=== PATIENT | male | born 1960 | race Two or more races ===

== ENCOUNTER 2019-12-01 17:48 | Inpatient (IN) | payer MEDICAID ==
[~2019-12-01] VITALS: Ht 175.3 cm; Wt 93.9 kg
--- NOTE | 2019-12-01 18:17 | NUR ---
DARVIN FROM HOME TO ER BED 5. AAOX4. SOB, TACHYPNEIC. BROUGHT IN FOR WORSENING SOB SINCE TODAY. PER EMS REPORT, PT HAS BEEN NOT FEELING WELL FOR THE PAST SEVERAL DAYS. TODAY PT'S SOB IS WORST. O2 SAT REPORTED @ 80% BY EMS PLACED ON O2 VIA NON REBREATHER SATTING AT 98%. PT IS NOW PLACED ON 02 VIA NC @ 2LPM O2 SAT NOTED @ 99%. MD WAS AT THE BEDSIDE FOR EVAL. ORDERS RECEIVED NOTED AND CARRIED OUT. IV LINE IS ALREADY PRESENT UPON ARRIVAL ON THE R AC 18G, BLOOD DRAWN AND SENT TO LAB. EMT WAS AT THE BEDSIDE FOR EKG. PT IS PLACED ON MONITOR.
[2019-12-01] MEDS ORDERED: ACETAMINOPHEN 325 MG TABLET ONE (18:22)
[2019-12-01] MEDS ORDERED: ACETAMINOPHEN 325 MG TABLET PO ONE (18:30)
[2019-12-01 18:37] LABS: BASOPHILS # (AUTO) 0.1 /CMM (0.0-0.2); EOSINOPHILS % (AUTO) 1.5 % (0.0-6.0); HEMATOCRIT 36 % (39-51); HEMOGLOBIN 11.4 g/dL (13.5-17.5); LYMPHOCYTES # (AUTO) 0.2 /CMM (0.8-4.8); MEAN CORPUSCULAR HGB CONC 32 g/dl (31.0-36.0); MEAN CORPUSCULAR VOLUME 91 fL (80-96); MONOCYTES # (AUTO) 0.6 /CMM (0.1-1.30); MONOCYTES % (AUTO) 7.7 % (2.0-12.0); NEUTROPHILS # (AUTO) 6.3 /CMM (1.8-8.9); NEUTROPHILS % (AUTO) 86.8 % (43.0-81.0); PLATELET COUNT (AUTO) 90 /CMM (150-450); RED BLOOD CELL COUNT(AUTO) 3.97 MIL/uL (4.5-6.0); WHITE BLOOD COUNT (AUTO) 7.3 K/uL (4.3-11.0)
--- NOTE | 2019-12-01 18:42 | NUR ---
URINE SENT TO LAB. RT AT BEDSIDE.
[2019-12-01 18:44] LABS: APPEARANCE,URINE Clear (CLEAR); BILIRUBIN,URINE SMALL (NEGATIVE); BLOOD, URINE Moderate Ery/uL (NEGATIVE); COLOR,URINE Yellow (YELLOW); KETONES,URINE Negative (NEGATIVE); LEUKOCYTE ESTERASE ,URINE Moderate (NEGATIVE); NITRITE, URINE Positive (NEGATIVE); PROTEIN,URINE 100 mg/dl (NEGATIVE); UGLUCOSE Negative (NEGATIVE)
[2019-12-01 18:47] LABS: ABG BASE EXCESS -1.4 mmol/L; ABG OXYGEN SATURATION 96.3 % (92.0-98.5); ABG PCO2 37.2 mmHg (35.0-45.0); ABG PH 7.408 (7.350-7.450); AaDO2 59.7 mmHg; COHb 0.4 % (0.5-1.5); MetHb 0.5 % (0.0-1.5); O2Hb 95.4 % (94.0-97.0); SITE, ABG Right Radial; VENT MODE, BG 2L NC
[2019-12-01 18:49] LABS: CARBON DIOXIDE 24 mmol/L (21-32); CHLORIDE 98 mmol/L (98-107); CREATININE 1.8 mg/dL (0.6-1.3); GLUCOSE 240 mg/dL (74-106); POTASSIUM 4.4 mmol/L (3.5-5.1); SODIUM SERUM 134 mmol/L (136-145); UREA NITROGEN, BLOOD 41 mg/dL (7-18)
[2019-12-01 18:54] LABS: BACTERIA,URINE 3+ /HPF (None Seen); SQUAMOUS EPITHELIAL CELL,UR Few /HPF (None Seen); WBC,URINE 21-50 /HPF (0-3)
[2019-12-01 18:58] LABS: ALANINE AMINOTRANSFERASE 12 U/L (12-78); ALBUMIN 3.4 g/dL (3.4-5.0); ALKALINE PHOSPHATASE 275 U/L (46-116); ASPARTATE AMINOTRANSFERASE 19 U/L (15-37); BILIRUBIN,DIRECT 1.8 mg/dL (0.0-0.2); BILIRUBIN,TOTAL 3.7 mg/dL (0.2-1.0); TOTAL PROTEIN, SERUM 7.9 g/dL (6.4-8.2)
[2019-12-01 19:26] LABS: EOSINOPHILS % (MANUAL) 3 % (0-4); LYMPHOCYTES % (MANUAL) 4 % (16-48); MONOCYTES % (MANUAL) 7 % (0-11.0); NEUTROPHILS % (MANUAL) 86 (42-76)
[2019-12-01] MEDS ORDERED: VANCOMYCIN 1 GM in IV D5W 250 ML IV ONE (19:30)
[2019-12-01] MEDS ORDERED: NS 0.9% IV ONE (19:30)
[2019-12-01] MEDS ORDERED: CEFEPIME 1 GM in IV D5W 50 ML IV ONE (19:30)
--- NOTE | 2019-12-01 19:32 | NUR ---
CALLED THE [facility] PAGED NADJA
[2019-12-01] MEDS ORDERED: VANCOMYCIN 1 GM VIAL ONE (19:57)
[2019-12-01] MEDS ORDERED: CEFEPIME 1 GM VIAL ONE (19:57)
[2019-12-01] MEDS ORDERED: ONDANSETRON HCL/PF 4 MG/2 ML VIAL IVP PRN (20:00)
[2019-12-01] MEDS ORDERED: Z GUARD REMEDY 2 OZ OINT TP PRN (20:00)
[2019-12-01] MEDS ORDERED: HYDROCODONE/APAP 5/325MG TABLET PO PRN (20:00)
[2019-12-01] MEDS ORDERED: MAG HYDROX/AL HYDROX/SIMETH 30 ML UDC PO PRN (20:00)
[2019-12-01] MEDS ORDERED: ACETAMINOPHEN 325 MG TABLET PO PRN (20:00)
[2019-12-01] MEDS ORDERED: MAGNESIUM HYDROXIDE 30 ML UDC PO PRN (20:00)
--- NOTE | 2019-12-01 20:11 | NUR ---
CALLED NURSING SUP FOR BED
--- NOTE | 2019-12-01 21:27 | NUR ---
REPORT GIVEN TO DANA DIAZ FOR JAY
[2019-12-01 21:45] VITALS: BP_SYST 110; BP_SYST 111; BP_DIAS 72; BP_DIAS 73
--- NOTE | 2019-12-01 21:45 | NUR ---
ADVERTISING ACCOUNT REPRESENTATIVEENGRAVER SET UP OPERATOR NOTES PATIENT TRANSFERRED FROM ER IN STABLE CONDITION. A/OX4. PRIMARY LANGUAGE GREENLANDIC; ABLE TO SPEAK LITTLE GERMAN. ABLE TO AMBULATE TO BED. ON 2L NC. C/O SLIGHT SOB UPON EXERTION. NO C/O PAIN AT THIS TIME. TELE MONITOR READING NSR WITH OCCASIONAL BUNDLE BRANCH BLOCK, HEART RATE 79. IV PRESENT ON RIGHT AC, SIZE 18, INTACT & PATENT, HEP LOCKED AT THIS TIME. PACE MAKER PRESENT ON LEFT UPPER CHEST. B/L LOWER LEG EDEMA PRESENT; PITTING +2. PHOTOS TAKEN AND PLACED IN CHART. BELONGINGS REVIEWED WITH PATIENT; HAS $130 IN [place]; OFFERED PATIENT TO KEEP WALLET IN SAFE HOWEVER PATIENT PREFERS TO KEEP IT AT THE BEDSIDE. ADMISSION ORDERS RECEIVED. SAFETY MEASURES IN PLACE AND PATIENT'S NEEDS MET. BED LOCKED, HOB ELEVATED, SIDE RAILS X2, CALL LIGHT WITHIN REACH. WILL CONTINUE TO MONITOR.
[2019-12-01] MEDS ORDERED: AZITHROMYCIN 500 MG VIAL ONE (23:05)
[2019-12-01] MEDS: AZITHROMYCIN 500 MG in IV D5W 250 ML IV SCH (23:19)
--- NOTE | 2019-12-01 23:20 | NUR ---
ASSISTANT REFINERY OPERATOR NOTES SCHEDULED AZITHROMYCIN 500MG IVPB PULLED FROM NIGHT LOCKER BY NURSING MARINE SURVEYOR. MANUAL BARCODE UTILIZED TO SCAN VIA EMAR.
[2019-12-01] MEDS: FUROSEMIDE 40 MG/4 ML VIAL IV SCH (23:44)
[2019-12-02] VITALS (7 sets, daily range): BP systolic 92–113; BP diastolic 62–75
[2019-12-02] MEDS ORDERED: DEXTROSE 50%-WATER 50 ML DISP.SYRIN IV PRN
[2019-12-02] MEDS ORDERED: HYDR-4077 PO (00:01)
[2019-12-02] MEDS ORDERED: CARV6.252 PO (00:01)
[2019-12-02] MEDS ORDERED: ATOR80TA PO (00:01)
[2019-12-02] MEDS ORDERED: FAMO20TA8 PO (00:01)
[2019-12-02] MEDS ORDERED: HYDR-4075 PO (00:01)
[2019-12-02] MEDS ORDERED: GLYB2.5T4 PO (00:01)
[2019-12-02] MEDS ORDERED: ISOS30TA6 PO (00:01)
[2019-12-02] MEDS ORDERED: CARV12.52 PO (00:01)
[2019-12-02] MEDS ORDERED: METO50TA16 PO (00:01)
[2019-12-02] MEDS ORDERED: GLIP5TAB13 PO (00:01)
[2019-12-02] MEDS ORDERED: METO25TA4 PO (00:01)
[2019-12-02] MEDS ORDERED: CEFTRIAXONE 1 G VIAL ONE (00:08)
[2019-12-02] MEDS: CEFTRIAXONE 1 G in IV D5W 50 ML IV SCH ×2 (00:45→23:28)
--- NOTE | 2019-12-02 00:45 | NUR ---
BOTTOM HOOP DRIVER NOTES SCHEDULED CEFTRIAZONE 1G IVPB PULLED FROM PYXIS BY CHARGE NURSE. MANUAL BARCODE UTILIZED TO SCAN VIA EMAR
[2019-12-02] MEDS: BLOOD SUGAR DIAGNOSTIC 1 EACH STRIP VI SCH ×4 (06:34→22:23)
[2019-12-02] MEDS: INSULIN REGULAR, HUMAN 100 UNIT/ML 3 ML VIAL SQ PRN ×3 (06:34→16:50)
--- NOTE | 2019-12-02 07:15 | NUR ---
Tele/RN - Assessment Patient is A/O x 4, no complaints overnight, afebrile, denies chest pain, on oxygen at 2lpm via NC, no c/o shortness of breath, tele shows SR with BBB. Saline lock on the RAC is patent, intact, with no signs of infiltration. Skin is intact, ambulates with cane. Fall precautions maintained. Labs reviewed, noted with platelet 78, no bleeding seen. Will continue with current medical management.
[2019-12-02 07:24] LABS: BASOPHILS % (AUTO) 0.5 % (0.0-2.0); HEMATOCRIT 33 % (39-51); HEMOGLOBIN 10.7 g/dL (13.5-17.5); LYMPHOCYTES # (AUTO) 0.5 /CMM (0.8-4.8); LYMPHOCYTES % (AUTO) 7.2 % (20.0-44.0); MEAN CORPUSCULAR HGB CONC 33 g/dl (31.0-36.0); MEAN CORPUSCULAR VOLUME 90 fL (80-96); MONOCYTES # (AUTO) 0.8 /CMM (0.1-1.30); NEUTROPHILS # (AUTO) 5.9 /CMM (1.8-8.9); NEUTROPHILS % (AUTO) 80.3 % (43.0-81.0); PLATELET COUNT (AUTO) 78 /CMM (150-450); RED BLOOD CELL COUNT(AUTO) 3.66 MIL/uL (4.5-6.0); WHITE BLOOD COUNT (AUTO) 7.4 K/uL (4.3-11.0)
--- NOTE | 2019-12-02 07:25 | NUR ---
CALCULATING MACHINE OPERATOR CLOSING NOTES PATIENT SLEEPING, EASY TO AWAKEN. A/OX4. ON 2L NC; NO S/S OF SOB OR C/O PAIN. TELE MONITOR READING NSR WITH OCCASIONAL BBB, HEART RATE 70. IV PRESENT ON RIGHT AC, SIZE 18, INTACT & PATENT, HEP LOCKED AT THIS TIME. SAFETY MEASURES IN PLACE AND PATIENT'S NEEDS MET. BED LOCKED, HOB ELEVATED, SIDE RAILS X2, CALL LIGHT WITHIN REACH. ENDORSED TO DAY SHIFT RN PLAN OF CARE.
[2019-12-02 07:33] LABS: CALCIUM, SERUM 8.7 mg/dL (8.5-10.1); CREATININE 1.6 mg/dL (0.6-1.3); MAGNESIUM 1.9 mg/dL (1.8-2.4); PHOSPHORUS 4.2 mg/dL (2.5-4.9); POTASSIUM 3.7 mmol/L (3.5-5.1)
[2019-12-02] MEDS: FUROSEMIDE 40 MG/4 ML VIAL IV SCH (08:16)
[2019-12-02] MEDS ORDERED: ISOS30TA9 PO (08:38)
[2019-12-02] MEDS ORDERED: ASPI-1169 PO (08:38)
[2019-12-02] MEDS ORDERED: ENOXAPARIN SODIUM 30 MG/0.3 ML DISP.SYRIN SQ SCH (09:00)
[2019-12-02 10:12] LABS: BAND % (MANUAL) 3 % (0.0-5.0); EOSINOPHILS % (MANUAL) 1 % (0-4); LYMPHOCYTES % (MANUAL) 4 % (16-48); MONOCYTES % (MANUAL) 11 % (0-11.0); NEUTROPHILS % (MANUAL) 81 (42-76)
--- NOTE | 2019-12-02 11:00 | NUR ---
Tele/RN - Notes Patient resting comfortably, denies SOB, diuresing well, BLE swelling improved, continue to elevate on pillows.
[2019-12-02] MEDS ORDERED: METOPROLOL SUCCINATE 25 MG TAB.SR.24H PO SCH (14:30)
[2019-12-02] MEDS ORDERED: CARVEDILOL 12.5 MG TABLET PO SCH (14:30)
[2019-12-02] MEDS ORDERED: hydrALAZINE HCL 10 MG TABLET PO SCH (14:30)
[2019-12-02] MEDS ORDERED: FAMOTIDINE (20 MG) 20 MG TABLET PO PRN (14:30)
[2019-12-02] MEDS: ASPIRIN 81 MG TAB.CHEW PO SCH (15:15)
[2019-12-02] MEDS: hydrALAZINE HCL 10 MG TABLET PO SCH (16:25)
--- NOTE | 2019-12-02 18:16 | NUR ---
Tele/RN - End of shift summary No significant change in condition seen, tele shows v-pacing/BBB, afebrile, comfortable on 2lpm via NC, denies SOB, blood sugar controlled, assisted with self-care activities to minimize exhaustion. Patient updated on plan of care. Will continue with current medical management.
--- NOTE | 2019-12-02 19:00 | NUR ---
TELE/RN OPENING NOTES: RECEIVED PATIENT A/OX4, VERBALLY RESPONSIVE AND ABLE TO MAKE NEEDS KNOWN. COMORAN SPEAKING BUT ABLE TO UNDERSTAND MINIMAL NEPALI. ON 2L NC; NO S/S OF SOB OR C/O PAIN. TELE MONITOR READING V PACING WITH OCCASIONAL BBB, OCCASIONAL PVCS, HEART RATE 90S. IV PRESENT ON RIGHT AC #18G, SL. INTACT & PATENT. SAFETY MEASURES IN PLACE AND PATIENT'S NEEDS MET. BED LOCKED, HOB ELEVATED, SIDE RAILS X2, CALL LIGHT WITHIN REACH. WILL CONTINUE TO MONITOR ACCORDINGLY.
--- NOTE | 2019-12-02 22:00 | NUR ---
TELE/RN NOTES: ACCUCHECK FOR HS 2200 IS 130. NO COVERAGE GIVEN PER SLIDING SCALE. NO S/S OF HYPOGLYCEMIA/ HYPERGLYCEMIA.
[2019-12-02] MEDS: AZITHROMYCIN 500 MG in IV D5W 250 ML IV SCH (22:17)
[2019-12-02] MEDS: *INSULIN REGULAR(HUMULIN R)HUM 100 UNIT/ML VIAL SQ PRN (22:23)
--- NOTE | 2019-12-02 23:30 | NUR ---
TELE/RN NOTES: PT COMPLAINED OF NAUSEA. REQUESTED NAUSEA MEDICATION. ADMINISTERED 4MG ZOFRAN IVP ORDERED Q6 PRN. PT STABLE. VS STABLE. WILL CONTINUE TO MONITOR.
[2019-12-03] VITALS: BP 110/70
[2019-12-03 04:00] VITALS: BP 123/81
[2019-12-03] MEDS: BLOOD SUGAR DIAGNOSTIC 1 EACH STRIP VI SCH ×4 (06:48→22:11)
[2019-12-03] MEDS: INSULIN REGULAR, HUMAN 100 UNIT/ML 3 ML VIAL SQ PRN ×2 (06:48→11:51)
--- NOTE | 2019-12-03 06:48 | NUR ---
TELE/RN NOTES: ACCUCHECK FOR AC 0730 IS 94. NO COVERAGE GIVEN PER SLIDING SCALE. NO S/S OF HYPOGLYCEMIA/ HYPERGLYCEMIA.
--- NOTE | 2019-12-03 07:07 | NUR ---
TELE/RN CLOSING NOTES: PATIENT REMAINS A/OX4, VERBALLY RESPONSIVE AND ABLE TO MAKE NEEDS KNOWN. NO SIGNIFICANT CHANGES IN CONDITION. ON 2L NC; NO S/S OF SOB OR C/O PAIN. TELE MONITOR READING V PACING WITH OCCASIONAL BBB, OCCASIONAL PVCS, HEART RATE 90S. IV PRESENT ON RIGHT AC #18G, SL. INTACT & PATENT. SAFETY MEASURES IN PLACE AND PATIENT'S NEEDS MET. BED LOCKED, HOB ELEVATED, SIDE RAILS X2, CALL LIGHT WITHIN REACH. WILL ENDORSE TO DAY SHIFT FOR JAY.
--- NOTE | 2019-12-03 07:15 | NUR ---
Tele/RN - Assessment Patient is A/O x 4, afebrile, denies chest pain, states breathing better, on oxygen at 2lpm via NC, tele shows v-pacing with BBB, occasional PVCs. Saline lock on the RAC is patent, intact, with no signs of infiltration. Skin is intact, ambulates with cane. Fall precautions maintained. Lab results still pending. Will continue with current medical management.
[2019-12-03 07:48] LABS: BASOPHILS % (AUTO) 0.5 % (0.0-2.0); EOSINOPHILS % (AUTO) 3.8 % (0.0-6.0); HEMATOCRIT 36 % (39-51); HEMOGLOBIN 11.5 g/dL (13.5-17.5); LYMPHOCYTES # (AUTO) 0.6 /CMM (0.8-4.8); LYMPHOCYTES % (AUTO) 9.8 % (20.0-44.0); MEAN CORPUSCULAR HGB CONC 32 g/dl (31.0-36.0); MEAN CORPUSCULAR VOLUME 89 fL (80-96); MONOCYTES # (AUTO) 0.7 /CMM (0.1-1.30); MONOCYTES % (AUTO) 11.7 % (2.0-12.0); NEUTROPHILS # (AUTO) 4.2 /CMM (1.8-8.9); NEUTROPHILS % (AUTO) 74.2 % (43.0-81.0); PLATELET COUNT (AUTO) 87 /CMM (150-450); WHITE BLOOD COUNT (AUTO) 5.7 K/uL (4.3-11.0)
[2019-12-03 08:00] VITALS: BP 115/80
[2019-12-03] MEDS: ASPIRIN 81 MG TAB.CHEW PO SCH (08:01)
[2019-12-03] MEDS: FUROSEMIDE 40 MG/4 ML VIAL IV SCH (08:01)
[2019-12-03] MEDS: hydrALAZINE HCL 10 MG TABLET PO SCH ×3 (08:01→16:04)
[2019-12-03 08:03] LABS: CALCIUM, SERUM 8.8 mg/dL (8.5-10.1); CREATININE 1.7 mg/dL (0.6-1.3); PHOSPHORUS 4.4 mg/dL (2.5-4.9)
[2019-12-03] MEDS: ISOSORBIDE DINITRATE (20MG) 20 MG TABLET PO SCH (08:03)
[2019-12-03] MEDS: ATORVASTATIN 40 MG TABLET PO SCH (08:03)
--- NOTE | 2019-12-03 10:30 | NUR ---
Tele/RN - MD Order Dr. Ross with order to d/c telemetry and transfer to med-surg status with same orders.
[2019-12-03 16:00] VITALS: BP 116/69
--- NOTE | 2019-12-03 18:34 | NUR ---
MS/RN - End of shift summary Patient states feeling better, no acute distress, afebrile, comfortable on 2lpm via NC, denies SOB, blood sugar controlled, assisted with self-care activities to minimize exhaustion. US kidney was done to r/o obstructive uropathy, result showed normal renal. Patient updated on plan of care. Will continue with current medical management.
--- NOTE | 2019-12-03 19:54 | NUR ---
MS/RN OPENING NOTES: RECEIVED PATIENT AWAKE IN BED, RESTING COMFORTABLY. A/OX4, VERBALLY RESPONSIVE AND ABLE TO MAKE NEEDS KNOWN. HUNGARIAN SPEAKING BUT ABLE TO UNDERSTAND MINIMAL KYRGYZ. SATURATING WELL ON 2L NC; NO S/S OF SOB OR C/O PAIN. NOW MEDSURG STATUS. IV PRESENT ON RIGHT AC #18G, SL. INTACT & PATENT. SAFETY MEASURES IN PLACE AND PATIENT'S NEEDS MET. BED LOCKED, HOB ELEVATED, SIDE RAILS X2, CALL LIGHT WITHIN REACH. WILL CONTINUE TO MONITOR ACCORDINGLY.
[2019-12-03 20:00] VITALS: BP 118/76
[2019-12-03 20:17] VITALS: BP 118/76
--- NOTE | 2019-12-03 22:00 | NUR ---
MS/RN NOTES: ACCUCHECK FOR HS 2200 IS 110. NO COVERAGE GIVEN PER SLIDING SCALE. NO S/S OF HYPOGLYCEMIA/ HYPERGLYCEMIA.
[2019-12-03] MEDS: *INSULIN REGULAR(HUMULIN R)HUM 100 UNIT/ML VIAL SQ PRN (22:12)
[2019-12-03] MEDS: AZITHROMYCIN 500 MG in IV D5W 250 ML IV SCH (22:54)
[2019-12-04] MEDS: CEFTRIAXONE 1 G in IV D5W 50 ML IV SCH (00:59)
[2019-12-04 06:38] LABS: BASOPHILS # (AUTO) 0.1 /CMM (0.0-0.2); EOSINOPHILS % (AUTO) 3.7 % (0.0-6.0); HEMATOCRIT 36 % (39-51); HEMOGLOBIN 11.4 g/dL (13.5-17.5); LYMPHOCYTES # (AUTO) 0.5 /CMM (0.8-4.8); LYMPHOCYTES % (AUTO) 8.7 % (20.0-44.0); MEAN CORPUSCULAR HGB CONC 32 g/dl (31.0-36.0); MEAN CORPUSCULAR VOLUME 89 fL (80-96); MONOCYTES # (AUTO) 0.7 /CMM (0.1-1.30); MONOCYTES % (AUTO) 11.5 % (2.0-12.0); NEUTROPHILS # (AUTO) 4.3 /CMM (1.8-8.9); NEUTROPHILS % (AUTO) 75.1 % (43.0-81.0); PLATELET COUNT (AUTO) 99 /CMM (150-450); RED BLOOD CELL COUNT(AUTO) 3.99 MIL/uL (4.5-6.0); WHITE BLOOD COUNT (AUTO) 5.7 K/uL (4.3-11.0)
[2019-12-04 06:57] LABS: CALCIUM, SERUM 8.8 mg/dL (8.5-10.1); CREATININE 1.7 mg/dL (0.6-1.3); MAGNESIUM 2.2 mg/dL (1.8-2.4); PHOSPHORUS 3.9 mg/dL (2.5-4.9); POTASSIUM 3.8 mmol/L (3.5-5.1)
[2019-12-04] MEDS: BLOOD SUGAR DIAGNOSTIC 1 EACH STRIP VI SCH ×2 (07:00→11:43)
[2019-12-04] MEDS: INSULIN REGULAR, HUMAN 100 UNIT/ML 3 ML VIAL SQ PRN ×2 (07:01→11:43)
--- NOTE | 2019-12-04 07:02 | NUR ---
MS/RN CLOSING NOTES: PATIENT REMAINS A/OX4, VERBALLY RESPONSIVE AND ABLE TO MAKE NEEDS KNOWN. NO SIGNIFICANT CHANGES IN CONDITION. ON 2L NC; NO S/S OF SOB OR C/O PAIN. IV PRESENT ON RIGHT AC #18G, SL. INTACT & PATENT. SAFETY MEASURES IN PLACE AND PATIENT'S NEEDS MET. BED LOCKED, HOB ELEVATED, SIDE RAILS X2, CALL LIGHT WITHIN REACH. WILL ENDORSE TO DAY SHIFT FOR JAY.
--- NOTE | 2019-12-04 07:02 | NUR ---
MS/RN NOTES: ACCUCHECK IS 95. NO COVERAGE NEEDED PER SLIDING SCALE. PT STABLE.
--- NOTE | 2019-12-04 07:03 | NUR ---
MS/RN NOTES: ACCUCHECK FOR HS 2200 IS 110. NO COVERAGE GIVEN PER SLIDING SCALE. NO S/S OF HYPOGLYCEMIA/ HYPERGLYCEMIA.
--- NOTE | 2019-12-04 07:48 | NUR ---
MS RN NOTES PATIENT IN BED RESTING NO SOB OR ACUTE DISTRESS NOTED. PATIENT ALERT, ORIENTED X3, WELSH SPEAKING. SAFETY MEASURES IN PLACE WILL CONTINUE TO MONITOR.
[2019-12-04] MEDS ORDERED: CARVEDILOL 6.25 MG TABLET PO SCH (09:00)
[2019-12-04] MEDS: hydrALAZINE HCL 10 MG TABLET PO SCH ×2 (09:00→13:00)
[2019-12-04] MEDS: ASPIRIN 81 MG TAB.CHEW PO SCH (09:16)
[2019-12-04] MEDS: ATORVASTATIN 40 MG TABLET PO SCH (09:16)
[2019-12-04] MEDS: FUROSEMIDE 40 MG/4 ML VIAL IV SCH (09:16)
[2019-12-04] MEDS: ISOSORBIDE DINITRATE (20MG) 20 MG TABLET PO SCH (09:17)
[2019-12-04 13:00] VITALS: BP 110/67
[2019-12-04] MEDS ORDERED: LEVO500T90 PO (13:22)
[2019-12-04] MEDS ORDERED: FURO-144 PO (13:22)
--- NOTE | 2019-12-04 15:25 | NUR ---
MS RN NOTES DISCHARGE TEACHING PROVIDED WITH AUTO CLAIM REPRESENTATIVE. PATIENT VERBALIZED UNDERSTANDING. LO CALLED MEDICATIONS WAITING FOR PARTS EXPEDITER. PATIENT EDUCATED ON MEDICATIONS THAT WERE STOPPED. PATIENT EDUCATED ON NEW MEDICATIONS. PROVIDED PATIENT WITH FREE [facility] INFO WHICH WAS PROVIDED BY CASE MANAGEMENT. PERIPHERAL IV REMOVED WITH MINIMAL BLEEDING. PATIENT REQUESTED TAXI. TAXI CALLED WAITING FOR PARTS EXPEDITER. PATIENTS HOME MEDICATIONS RETURNED TO PATIENT. MD AWARE OF ALL ABNORMAL LABS AND TESTS. PATIENT WAITING FOR TAXI PARTS EXPEDITER.
--- NOTE | 2019-12-04 15:32 | NUR ---
MS RN NOTES PATIENT REFUSES DISCHARGE PICTURES.
--- NOTE | 2019-12-04 16:00 | NUR ---
MS RN NOTES PATIENTS ID BAND REMOVED, PATIENT ESCORTED BY VIDEO SYSTEM REPAIRER TO TAXI IN STABLE CONDITION.
[2019-12-04] MEDS ORDERED: AZITHROMYCIN 250 MG TABLET PO SCH (21:00)
== END 2019-12-04 16:00 | disposition home or self-care (01) | DRG 720 ==
LOC: ER 17:48 → TELE 20:51 → MED 12-03 13:13
PROVIDERS: ADMIT Internal Medicine; ATTEND Student in an Organized Health Care Education/Training Program
DX: A41.9 Sepsis, unspecified organism (principal); E87.1 Hypo-osmolality and hyponatremia; I25.10 Atherosclerotic heart disease of native coronary artery without angina pectoris; J96.01 Acute respiratory failure with hypoxia; N17.0 Acute kidney failure with tubular necrosis; K74.60 Unspecified cirrhosis of liver; N39.0 Urinary tract infection, site not specified; I13.0 Hypertensive heart and chronic kidney disease with heart failure and stage 1 through stage 4 chronic kidney disease, or unspecified chronic kidney disease; I50.23 Acute on chronic systolic (congestive) heart failure; N18.9 Chronic kidney disease, unspecified; E11.22 Type 2 diabetes mellitus with diabetic chronic kidney disease; E78.5 Hyperlipidemia, unspecified; D63.8 Anemia in other chronic diseases classified elsewhere; Z95.0 Presence of cardiac pacemaker; Z79.4 Long term (current) use of insulin; E87.2 Acidosis; I42.9 Cardiomyopathy, unspecified; B96.20 Unspecified Escherichia coli [E. coli] as the cause of diseases classified elsewhere; N13.9 Obstructive and reflux uropathy, unspecified
CPT/HCPCS: 36415; 36600; 71045-TC; 76770-TC; 80048-TC; 80076-TC; 81000-TC; 82803-TC; 82962-TC; 83605-TC; 83735-TC; 84100-TC; 84484-TC; 85025-TC; 85730-TC; 87040-TC; 87081-TC; 87086-TC; 87186-TC; C9803-CS; G0378; J0456; J0692; J0696; J1815; J1940; J2405; J3370; J7030; J7050; J7060

== ENCOUNTER 2020-01-18 04:51 | Inpatient (IN) | payer MEDICAID ==
[~2020-01-18] VITALS: Ht 175.3 cm; Wt 83.9 kg
[~2020-01-18 04:51] MED LIST: ASPI-1169 PO; ATOR80TA PO; CARV6.252 PO; FAMO20TA8 PO; FURO-144 PO; HYDR-4075 PO; ISOS30TA9 PO; LEVO500T90 PO
--- NOTE | 2020-01-18 04:54 | NUR ---
DARVIN 40 FROM HOME FOR C/O WEAKNESS. PT FOUND DIAPHORETIC W/ BS:33 ON SCENE.ORAL GLUCOSE GIVEN CHOCOLATE DIPPER. FSBS ON TRIAGE : 33, -ALOC; PT APPEARS ALERT AND AWAKE, -SOB, NAD NOTED, PENDING ER PROVIDER ARICAL
[2020-01-18] MEDS ORDERED: DEXTROSE 50%-WATER 50 ML DISP.SYRIN ONE (05:01)
[2020-01-18 05:21] LABS: BASOPHILS % (AUTO) 0.5 % (0.0-2.0); EOSINOPHILS % (AUTO) 2.5 % (0.0-6.0); HEMATOCRIT 47 % (39-51); HEMOGLOBIN 15.3 g/dL (13.5-17.5); LYMPHOCYTES # (AUTO) 0.5 /CMM (0.8-4.8); LYMPHOCYTES % (AUTO) 7.7 % (20.0-44.0); MEAN CORPUSCULAR HGB CONC 33 g/dl (31.0-36.0); MEAN CORPUSCULAR VOLUME 89 fL (80-96); MONOCYTES # (AUTO) 0.5 /CMM (0.1-1.30); MONOCYTES % (AUTO) 8.6 % (2.0-12.0); NEUTROPHILS # (AUTO) 4.7 /CMM (1.8-8.9); NEUTROPHILS % (AUTO) 80.7 % (43.0-81.0); PLATELET COUNT (AUTO) 187 /CMM (150-450); RED BLOOD CELL COUNT(AUTO) 5.27 MIL/uL (4.5-6.0); WHITE BLOOD COUNT (AUTO) 5.8 K/uL (4.3-11.0)
--- NOTE | 2020-01-18 05:22 | NUR ---
RPT BS 105
--- NOTE | 2020-01-18 05:24 | NUR ---
COVID SWAB SENT
[2020-01-18] MEDS ORDERED: METO50TA7 PO (05:25)
[2020-01-18] MEDS ORDERED: AMIO200T4 PO (05:25)
[2020-01-18] MEDS ORDERED: METO25TA4 PO (05:25)
[2020-01-18] MEDS ORDERED: PANT40TA49 PO (05:25)
[2020-01-18] MEDS ORDERED: HYDR-4076 PO (05:25)
[2020-01-18] MEDS ORDERED: ATOR80TA PO (05:25)
[2020-01-18] MEDS ORDERED: GLYB2.5T4 PO (05:25)
[2020-01-18] MEDS ORDERED: METF-440 PO (05:25)
[2020-01-18] MEDS ORDERED: FURO-144 PO (05:25)
[2020-01-18] MEDS ORDERED: SPIR50TA5 PO (05:25)
[2020-01-18] MEDS ORDERED: ASPI-1420 PO (05:25)
[2020-01-18] MEDS ORDERED: ISOS30TA6 PO (05:25)
[2020-01-18] MEDS ORDERED: DEXTROSE 50%-WATER 50 ML DISP.SYRIN IVP ONE (05:30)
[2020-01-18 05:37] LABS: CALCIUM, SERUM 10.1 mg/dL (8.5-10.1); CREATININE 1.8 mg/dL (0.6-1.3); POTASSIUM 4.5 mmol/L (3.5-5.1)
--- NOTE | 2020-01-18 05:37 | NUR ---
SPOKE WITH [facility] WILL CALL BACK FOR PANEL WITH
--- NOTE | 2020-01-18 05:44 | NUR ---
dr. tate speaking to dr. poly hope for plan of care.
[2020-01-18] MEDS ORDERED: ACETAMINOPHEN 325 MG TABLET PO PRN (06:00)
[2020-01-18] MEDS ORDERED: ONDANSETRON HCL/PF 4 MG/2 ML VIAL IVP PRN (06:00)
[2020-01-18] MEDS ORDERED: HYDROCODONE/APAP 5/325MG TABLET PO PRN (06:00)
[2020-01-18] MEDS ORDERED: DEXTROSE 50%-WATER 50 ML DISP.SYRIN IV PRN (06:00)
[2020-01-18] MEDS ORDERED: ZOLPIDEM TARTRATE 5 MG TABLET PO PRN (06:00)
--- NOTE | 2020-01-18 06:11 | NUR ---
per lab covid test negative
[2020-01-18 06:12] LABS: ALANINE AMINOTRANSFERASE 43 U/L (12-78); ALBUMIN 4.1 g/dL (3.4-5.0); ALKALINE PHOSPHATASE 296 U/L (46-116); ASPARTATE AMINOTRANSFERASE 19 U/L (15-37); B-TYPE NATRIURETIC PEPTIDE 24434 PG/ML (0-125); BILIRUBIN,DIRECT 1.8 mg/dL (0.0-0.2); BILIRUBIN,TOTAL 2.7 mg/dL (0.2-1.0); MAGNESIUM 2.2 mg/dL (1.8-2.4); TOTAL PROTEIN, SERUM 9.9 g/dL (6.4-8.2)
--- NOTE | 2020-01-18 06:12 | NUR ---
called rn sup for tele bed
--- NOTE | 2020-01-18 06:19 | NUR ---
PER WESTLEY RN SUP PT WILL BE PLACED IN 320-1
--- NOTE | 2020-01-18 06:24 | NUR ---
REPORT GIVEN TO ABIGAIL CORTEZ CHARGE NURSE FOR JAY; PT WILL BE TRANSPORTED TO 3RD FLOOR TELE
--- NOTE | 2020-01-18 07:30 | NUR ---
RN NOTE: PT RECEIVED IN BED, EYES OPEN AND A/OX4. PT ON RA O2 SATURATION 100%. NO RESPIRATORY DISTRESS OR SOB. PT IS AMBULATORY TO THE BATHROOM. PT HAS LAC $18, RH #18, INTACT AND NO SIGNS OF INFECTION OR INFILTRATION. MED RECON COMPLETED, MEDS SENT TO PHARMACY. ALL SAFETY MEASURES IN PLACE. CALL LIGHT WITHIN REACH. WILL CONTINUE TO MONITOR CLOSELY. BED IN LOCKED LOWEST POSITION.
--- NOTE | 2020-01-18 08:51 | NUR ---
RN NOTE: PT BLOOD SUGAR OF 31, D50 GIVEN PER PROTOCOL. MD DEAL AWARE. NO FURTHER ORDERS AT THIS TIME. WILL REASSESS
[2020-01-18] MEDS: BLOOD SUGAR DIAGNOSTIC 1 EACH STRIP IN SCH ×4 (10:01→22:13)
[2020-01-18] MEDS: DOCUSATE SODIUM 100 MG CAPSULE PO SCH ×2 (10:33→19:30)
[2020-01-18] MEDS: ASPIRIN EC 81 MG TABLET.DR PO SCH (10:33)
[2020-01-18] MEDS: PANTOPRAZOLE 40 MG TABLET.DR PO SCH (10:33)
[2020-01-18] MEDS: ISOSORBIDE MONONITRATE (30MG) 30 MG TAB.SR.24H PO SCH (10:33)
--- NOTE | 2020-01-18 11:40 | NUR ---
DANA NOTE: PER LAMONT DEAL RN TO GIVE D10 @ 30 ML/HR. RN TO CONTINUE GLUCOSE CHECKS AND WITHHOLD INSULIN COVERAGE UNLESS BS IN THE 250-300S. Addendum: 01/18/20 at 1950 by BLANCA VERGARA RN RN NOTE: PER LAMONT DEAL RN TO GIVE D10 @ 50 ML/HR. RN TO CONTINUE GLUCOSE CHECKS AND WITHHOLD INSULIN COVERAGE UNLESS BS IN THE 250-300S.
[2020-01-18 12:00] VITALS: BP 115/69
[2020-01-18] MEDS: Sodium Chloride 154 MEQ in IV 10% DEXTROSE 1,000 ML IV PRN (12:29)
[2020-01-18] MEDS: METOPROLOL TARTRATE 25 MG TABLET PO SCH ×2 (13:56→21:00)
[2020-01-18 16:27] VITALS: BP 88/64
--- NOTE | 2020-01-18 19:30 | NUR ---
MEDICAL IMAGING DIRECTOR OPENING NOTES RECEIVED PATIENT IN BED ALERT AND ORIENTED X 4. VERBALLY RESPONSIVE AND ABLE TO FOLLOW DIRECTIONS. BREATHING REGULAR AND UNLABORED ON ROOM AIR. RIGHT HAND LEFT AC BOTH G18 IV LINES INTACT AND PATENT, FLUSHING WELL WITH NO BLEEDING OR S/S OF INFILTRATION NOTED. ON CARDIAC MONITORING WITH NSR AT 70bpm. DENIES SUICIDAL IDEATION OR PAIN/DISCOMFORT AT THIS TIME. BED LOW AND LOCKED ON SEMI FOWLERS POSITION. CALL LIGHT IN REACH. WILL CONTINUE TO MONITOR.
--- NOTE | 2020-01-18 19:50 | NUR ---
RN NOTE: PT IN BED, EYES OPEN, A/OX4. PT ON RA O2 SATURATION 98. NO RESPIRATORY DISTRESS OR SOB. PT AMBULATORY WITH WALKER, SKIN REMAINS INTACT. PT HAS RIGHT HAND #18, LAC #18 RUNNING NACL D10 @50 ML/HR. ENDORSED TO ONCOMING RN TO WITHHOLD FROM GIVING INSULIN UNTIL BS 250-300, PER PATIENT MANAGER TOYIN. PT IN BED LOCKED LOWEST POSITION. CALL LIGHT WITHIN REACH. ALL SAFETY MEASURES IN PLACE. REPORT GIVEN TO ONCOMING RN FOR JAY
[2020-01-18 20:00] VITALS: BP 95/63
[2020-01-18 20:45] VITALS: BP 95/63
--- NOTE | 2020-01-18 22:15 | NUR ---
RESUME SPECIALIST NOTES BS 102mg/dl, NO INSULIN COVERAGE NEEDED. SNACKS PROVIDED ON BEDSIDE. WILL CONTINUE TO MONITOR.
[2020-01-18] MEDS ORDERED: MAGNESIUM HYDROXIDE 30 ML UDC PO PRN (22:30)
[2020-01-19] VITALS (7 sets, daily range): BP systolic 90–104; BP diastolic 63–71
[2020-01-19] MEDS: Sodium Chloride 154 MEQ in IV 10% DEXTROSE 1,000 ML IV PRN (02:35)
[2020-01-19 06:22] LABS: BASOPHILS # (AUTO) 0.1 /CMM (0.0-0.2); BASOPHILS % (AUTO) 1.5 % (0.0-2.0); EOSINOPHILS % (AUTO) 7.3 % (0.0-6.0); HEMATOCRIT 38 % (39-51); HEMOGLOBIN 12.5 g/dL (13.5-17.5); LYMPHOCYTES # (AUTO) 0.5 /CMM (0.8-4.8); MEAN CORPUSCULAR HGB CONC 33 g/dl (31.0-36.0); MEAN CORPUSCULAR VOLUME 88 fL (80-96); MONOCYTES # (AUTO) 0.8 /CMM (0.1-1.30); MONOCYTES % (AUTO) 13.3 % (2.0-12.0); NEUTROPHILS # (AUTO) 4.1 /CMM (1.8-8.9); NEUTROPHILS % (AUTO) 68.9 % (43.0-81.0); PLATELET COUNT (AUTO) 165 /CMM (150-450); RED BLOOD CELL COUNT(AUTO) 4.34 MIL/uL (4.5-6.0); WHITE BLOOD COUNT (AUTO) 5.9 K/uL (4.3-11.0)
[2020-01-19] MEDS: BLOOD SUGAR DIAGNOSTIC 1 EACH STRIP IN SCH ×4 (06:34→21:30)
[2020-01-19] MEDS: INSULIN REGULAR, HUMAN 100 UNIT/ML 3 ML VIAL SQ PRN ×4 (06:35→21:33)
--- NOTE | 2020-01-19 06:35 | NUR ---
ELECTRICAL APPLIANCE MECHANIC NOTES BS 180mg/dl, INSULIN COVERAGE NOT GIVEN PER PAYROLL SUPERVISOR TITUS ONLY GIVE INSULIN WHEN BLOOD SUGAR STABILIZES AND WHEN IT IS 200-300'S LEVEL.
--- NOTE | 2020-01-19 06:50 | NUR ---
BASEBALL INSPECTOR AND REPAIRER CLOSING NOTES PATIENT IN BED ALERT AND ORIENTED X 4. AFEBRILE WITH NO S/S OF DISTRESS OBSERVED. RIGHT HAND LEFT AC BOTH G18 IV LINES PATENT AND FLUSHING WELL. MAINTAINED ON CARDIAC MONITORING WITH NSR AT 72bpm. NO COMPLAINTS OF PAIN/DISCOMFORT REPORTED AT THIS TIME. BED LOW AND LOCKED ON SEMI FOWLERS POSITION. CALL LIGHT IN REACH. WILL ENDORSE TO MORNING SHIFT FOR JAY.
[2020-01-19 06:52] LABS: THYROID STIMULATING HORMONE 10.064 uIU/mL (0.358-3.74)
[2020-01-19 06:53] LABS: BILIRUBIN,TOTAL 1.6 mg/dL (0.2-1.0); CALCIUM, SERUM 9.1 mg/dL (8.5-10.1); CREATININE 1.9 mg/dL (0.6-1.3); MAGNESIUM 2.1 mg/dL (1.8-2.4); PHOSPHORUS 3.4 mg/dL (2.5-4.9); POTASSIUM 5.3 mmol/L (3.5-5.1); TOTAL PROTEIN, SERUM 7.6 g/dL (6.4-8.2)
--- NOTE | 2020-01-19 07:45 | NUR ---
RN NOTE THE PATIENT IS RECEIVED IN BED. PATIENT IS ALERT AND ORIENTED X4. IN ROOM AIR AND DENIES SOB. RESPIRATION REGULAR AND UNLABORED. DENIES PAIN. TELE BOX READING IS SR 84. LAC G 18 PATENT AND SALINE LOCKED. RIGHT HAND G 18 PATENT NS IV FLUID INFUSING PER ORDER. NO S/S INFILTRATION NOTED. BED LOW AND LOCKED. SIDE RAILS UP X2. CALL LIGHT WITHIN REACH. WILL CONTINUE TO MONITOR.
[2020-01-19] MEDS: ISOSORBIDE MONONITRATE (30MG) 30 MG TAB.SR.24H PO SCH (09:00)
[2020-01-19 09:06] LABS: CREATININE, URINE 38.6 MG/DL (30.0-125.0); URINE TOTAL PROTEIN 8.7 mg/dL (0-11.9)
[2020-01-19 09:32] LABS: APPEARANCE,URINE CLEAR (CLEAR); BILIRUBIN,URINE NEGATIVE (NEGATIVE); BLOOD, URINE NEGATIVE Ery/uL (NEGATIVE); COLOR,URINE YELLOW (YELLOW); KETONES,URINE NEGATIVE (NEGATIVE); LEUKOCYTE ESTERASE ,URINE NEGATIVE (NEGATIVE); NITRITE, URINE NEGATIVE (NEGATIVE); PH,URINE 6.5 (5.0-8.0); PROTEIN,URINE NEGATIVE (NEGATIVE); UGLUCOSE NEGATIVE (NEGATIVE)
[2020-01-19 09:33] LABS: BACTERIA,URINE None seen /HPF (None Seen); RBC,URINE 0-2 /HPF (0-2); SQUAMOUS EPITHELIAL CELL,UR None Seen /HPF (None Seen); WBC,URINE 0-2 /HPF (0-3)
[2020-01-19] MEDS: ASPIRIN EC 81 MG TABLET.DR PO SCH (09:33)
[2020-01-19] MEDS: DOCUSATE SODIUM 100 MG CAPSULE PO SCH ×2 (09:34→16:08)
[2020-01-19] MEDS: PANTOPRAZOLE 40 MG TABLET.DR PO SCH (09:34)
[2020-01-19] MEDS: METOPROLOL SUCCINATE 50 MG TAB.SR.24H PO SCH (09:35)
[2020-01-19] MEDS: AMIODARONE HCL 200 MG TABLET PO SCH (09:39)
[2020-01-19] MEDS: HEPARIN SODIUM, PORCINE 5000 UNITS/1 ML VIAL SQ SCH ×2 (09:44→21:07)
[2020-01-19 10:20] LABS: EOSINOPHIL,URINE None Seen
--- NOTE | 2020-01-19 13:07 | NUR ---
RN NOTE DR MARTE IS MADE AWARE OF POTASSIUM LEVEL FO 5.3 AND PER MD NO NEW ORDER REGARDING THE POTASSIUM. HOWEVER, MD ORDERED TO DISCONTINUE SODIUM CHLORIDE 154 MEQ IN IV 10% DEXTROSE. THE ORDER IS READ BACK, VERIFIED. NOTED AND CARRIED OUT.
[2020-01-19] MEDS ORDERED: HYDR-4077 PO (15:32)
[2020-01-19] MEDS ORDERED: FURO-144 PO (15:33)
[2020-01-19] MEDS ORDERED: SPIR100T5 PO (15:33)
[2020-01-19] MEDS ORDERED: INFLUENZA VACCINE 2020-21 0.5 ML DISP.SYRIN IM ONE (16:00)
--- NOTE | 2020-01-19 18:23 | NUR ---
RN NOTE THE PATIENT IS ALERT AND ORIENTED X4. IN ROOM AIR AND DENIES SOB. RESPIRATION REGULAR AND UNLABORED. DENIES PAIN. PATIENT IS IN ROOM AIR AND SATURATION IS AT 96%. THE PATIENT IN NO APPARENT DISTRESS. LAC G 18 PATENT AND SALINE LOCKED. RIGHT HAND G 18 PATENT AND SALINE LOCKED. BED LOW AND LOCKED. SIDE RAILS UP X2. CALL LIGHT WITHIN REACH. WILL ENDORSE TO NIGHT.
--- NOTE | 2020-01-19 19:30 | NUR ---
MS RN OPENING NOTES RECEIVED PATIENT IN BED ALERT AND ORIENTED X 4. VERBALLY RESPONSIVE AND ABLE TO FOLLOW DIRECTIONS. BREATHING REGULAR AND UNLABORED ON ROOM AIR. RIGHT HAND LEFT AC BOTH G18 IV LINES INTACT AND PATENT, FLUSHING WELL WITH NO BLEEDING OR S/S OF INFILTRATION NOTED. DENIES SUICIDAL IDEATION OR PAIN/DISCOMFORT AT THIS TIME. BED LOW AND LOCKED ON SEMI FOWLERS POSITION. CALL LIGHT IN REACH. WILL CONTINUE TO MONITOR.
--- NOTE | 2020-01-19 22:00 | NUR ---
MS RN NOTES BS 252mg/dl, 6UNITS REGULAR INSULIN GIVEN SQ. SNACKS PROVIDED ON BEDSIDE. WILL CONTINUE TO MONITOR.
[2020-01-20] MEDS: BLOOD SUGAR DIAGNOSTIC 1 EACH STRIP IN SCH ×4 (06:30→21:35)
[2020-01-20] MEDS: INSULIN REGULAR, HUMAN 100 UNIT/ML 3 ML VIAL SQ PRN ×4 (06:30→21:35)
[2020-01-20 06:41] LABS: BASOPHILS # (AUTO) 0.1 /CMM (0.0-0.2); BASOPHILS % (AUTO) 1.3 % (0.0-2.0); HEMATOCRIT 40 % (39-51); HEMOGLOBIN 13.1 g/dL (13.5-17.5); LYMPHOCYTES # (AUTO) 0.7 /CMM (0.8-4.8); LYMPHOCYTES % (AUTO) 13.2 % (20.0-44.0); MEAN CORPUSCULAR HGB CONC 33 g/dl (31.0-36.0); MEAN CORPUSCULAR VOLUME 88 fL (80-96); MONOCYTES # (AUTO) 0.8 /CMM (0.1-1.30); MONOCYTES % (AUTO) 13.7 % (2.0-12.0); NEUTROPHILS # (AUTO) 3.6 /CMM (1.8-8.9); NEUTROPHILS % (AUTO) 64.8 % (43.0-81.0); PLATELET COUNT (AUTO) 173 /CMM (150-450); RED BLOOD CELL COUNT(AUTO) 4.53 MIL/uL (4.5-6.0); WHITE BLOOD COUNT (AUTO) 5.5 K/uL (4.3-11.0)
--- NOTE | 2020-01-20 06:50 | NUR ---
MS RN CLOSING NOTES PATIENT IN BED ALERT AND ORIENTED X 4. AFEBRILE WITH NO S/S OF DISTRESS OBSERVED. RIGHT HAND LEFT AC BOTH G18 IV LINES PATENT AND FLUSHING WELL. NO COMPLAINTS OF PAIN/DISCOMFORT REPORTED AT THIS TIME. BED LOW AND LOCKED ON SEMI FOWLERS POSITION. CALL LIGHT IN REACH. WILL ENDORSE TO MORNING SHIFT FOR JAY.
[2020-01-20 07:20] LABS: CALCIUM, SERUM 9.3 mg/dL (8.5-10.1); CREATININE 1.8 mg/dL (0.6-1.3); MAGNESIUM 2.2 mg/dL (1.8-2.4); PHOSPHORUS 3.7 mg/dL (2.5-4.9); POTASSIUM 5.7 mmol/L (3.5-5.1)
--- NOTE | 2020-01-20 07:40 | NUR ---
MS RN OPENING NOTES BEDSIDE ENDORSEMENT DONE. PATIENT IS IN BED, AWAKE AND VERBALLY RESPONSIVE, NOT IN ACUTE DISTRESS. A/O X4, ABLE TO MAKE NEEDS KNOWN. BREATHING EVEN AND UNLABORED, TOLERATING ROOM AIR. IV LINE ON LAC #18 AND R HAND #18, INTACT AND PATENT. SAFETY PRECAUTIONS IMPLEMENTED: BED LOCKED AND ON LOW POSITION, SIDE RAILS UP X2, CALL LIGHT WITHIN REACH. WILL CONTINUE TO MONITOR.
[2020-01-20 08:00] VITALS: BP 95/62
[2020-01-20] MEDS: HEPARIN SODIUM, PORCINE 5000 UNITS/1 ML VIAL SQ SCH ×2 (08:23→21:12)
[2020-01-20] MEDS: ASPIRIN EC 81 MG TABLET.DR PO SCH (08:24)
[2020-01-20] MEDS: DOCUSATE SODIUM 100 MG CAPSULE PO SCH ×2 (08:24→16:20)
[2020-01-20] MEDS: PANTOPRAZOLE 40 MG TABLET.DR PO SCH (08:24)
[2020-01-20] MEDS: METOPROLOL SUCCINATE 50 MG TAB.SR.24H PO SCH (08:26)
[2020-01-20] MEDS: ISOSORBIDE MONONITRATE (30MG) 30 MG TAB.SR.24H PO SCH (08:31)
[2020-01-20] MEDS: AMIODARONE HCL 200 MG TABLET PO SCH (08:32)
[2020-01-20] MEDS ORDERED: SODIUM POLYSTYRENE SULFONATE 15 G/60 ML BOTTLE PO ONE (10:30)
[2020-01-20 16:00] VITALS: BP 104/69
--- NOTE | 2020-01-20 18:49 | NUR ---
MS RN CLOSING NOTES PATIENT IS IN BED, AWAKE AND VERBALLY RESPONSIVE, NOT IN ACUTE DISTRESS. A/O X4, ABLE TO MAKE NEEDS KNOWN. BREATHING EVEN AND UNLABORED, TOLERATING ROOM AIR. IV LINE ON LAC #18 AND R HAND #18, INTACT AND PATENT. SAFETY PRECAUTIONS MAINTAINED: BED LOCKED AND ON LOW POSITION, SIDE RAILS UP X2, CALL LIGHT WITHIN REACH. WILL ENDORSE TO SENIOR JAVA DATA ARCHITECT RN FOR JAY.
--- NOTE | 2020-01-20 19:40 | NUR ---
MS RN OPENING NOTE: Patient awake and resting comfortably in bed. Patient alert and oriented x4, able to make needs known. Patient denies any pain at this time. Patient breathing well on room air, no SOB or acute respiratory distress noted. Noted IV access on left AC, 28 gauge, dry and intact, patent, no redness or infiltration. Safety precaution is in place, bed is in the lowest level, bed is locked, alarm is on, side rails x2 are up, and call light is within reach. Will continue to monitor.
[2020-01-20 20:00] VITALS: BP 104/71
[2020-01-20 20:20] VITALS: BP 104/71
[2020-01-21 06:35] LABS: BASOPHILS # (AUTO) 0.1 /CMM (0.0-0.2); BASOPHILS % (AUTO) 1.3 % (0.0-2.0); EOSINOPHILS % (AUTO) 8.3 % (0.0-6.0); HEMATOCRIT 39 % (39-51); HEMOGLOBIN 12.8 g/dL (13.5-17.5); LYMPHOCYTES # (AUTO) 0.6 /CMM (0.8-4.8); LYMPHOCYTES % (AUTO) 13.6 % (20.0-44.0); MEAN CORPUSCULAR HGB CONC 33 g/dl (31.0-36.0); MEAN CORPUSCULAR VOLUME 88 fL (80-96); MONOCYTES # (AUTO) 0.7 /CMM (0.1-1.30); MONOCYTES % (AUTO) 15.1 % (2.0-12.0); NEUTROPHILS # (AUTO) 2.8 /CMM (1.8-8.9); NEUTROPHILS % (AUTO) 61.7 % (43.0-81.0); PLATELET COUNT (AUTO) 171 /CMM (150-450); RED BLOOD CELL COUNT(AUTO) 4.42 MIL/uL (4.5-6.0); WHITE BLOOD COUNT (AUTO) 4.6 K/uL (4.3-11.0)
[2020-01-21] MEDS: INSULIN REGULAR, HUMAN 100 UNIT/ML 3 ML VIAL SQ PRN ×2 (06:36→21:45)
[2020-01-21] MEDS: BLOOD SUGAR DIAGNOSTIC 1 EACH STRIP IN SCH ×4 (06:36→21:36)
--- NOTE | 2020-01-21 06:38 | NUR ---
MS RN CLOSING NOTE: Patient in bed awake and alert. All needs met. Patient breathing well with no SOB or respiratory distress. Safety precaution in place, bed is in the lowest level, alarm is on, brakes are on, side rails x2 are up, and call light is within reach. Will endorse to next shift.
[2020-01-21 06:49] LABS: CALCIUM, SERUM 8.9 mg/dL (8.5-10.1); CREATININE 1.6 mg/dL (0.6-1.3); MAGNESIUM 2.2 mg/dL (1.8-2.4); PHOSPHORUS 4.3 mg/dL (2.5-4.9); POTASSIUM 5.3 mmol/L (3.5-5.1)
--- NOTE | 2020-01-21 07:10 | NUR ---
Patient awake and resting in bed. Patient alert and oriented x4, able to make needs known. Patient denies any pain at this time. Patient is on room air, no SOB or acute respiratory distress noted. IV access on left AC, 28 gauge, intact, patent, flushing well. BS level within normal range Safety precaution is in place, bed is in the lowest level, bed is locked, alarm is on, side rails x2 are up, and call light is within reach. Will continue to monitor.
[2020-01-21 08:00] VITALS: BP 107/72
[2020-01-21 08:23] LABS: BAND % (MANUAL) 1 % (0.0-5.0); EOSINOPHILS % (MANUAL) 5 % (0-4); LYMPHOCYTES % (MANUAL) 6 % (16-48); MONOCYTES % (MANUAL) 12 % (0-11.0); NEUTROPHILS % (MANUAL) 76 (42-76)
[2020-01-21] MEDS: AMIODARONE HCL 200 MG TABLET PO SCH (08:28)
[2020-01-21] MEDS: METOPROLOL SUCCINATE 50 MG TAB.SR.24H PO SCH (08:28)
[2020-01-21] MEDS: PANTOPRAZOLE 40 MG TABLET.DR PO SCH (08:28)
[2020-01-21] MEDS: ASPIRIN EC 81 MG TABLET.DR PO SCH (08:28)
[2020-01-21] MEDS: DOCUSATE SODIUM 100 MG CAPSULE PO SCH ×2 (08:28→17:56)
[2020-01-21] MEDS: ISOSORBIDE MONONITRATE (30MG) 30 MG TAB.SR.24H PO SCH (08:28)
[2020-01-21] MEDS: HEPARIN SODIUM, PORCINE 5000 UNITS/1 ML VIAL SQ SCH ×2 (08:31→21:36)
[2020-01-21] MEDS ORDERED: SODIUM POLYSTYRENE SULFONATE 15 G/60 ML BOTTLE PO ONE (10:30)
[2020-01-21] MEDS: LINAGLIPTIN 5 MG TABLET PO SCH (10:50)
--- NOTE | 2020-01-21 12:50 | NUR ---
Patient complains of epigastric pain and had one episode of vomiting. Dr Burgos notified.
[2020-01-21] MEDS ORDERED: FUROSEMIDE 20 MG/2 ML VIAL IV ONE (14:00)
--- NOTE | 2020-01-21 14:00 | NUR ---
A new order from dr. Burgos : JO stat
[2020-01-21 16:00] VITALS: BP 113/74
[2020-01-21] MEDS ORDERED: LACTULOSE 10 G/15 ML UDC (PYXIS) PO PRN (16:30)
[2020-01-21] MEDS ORDERED: FURO-144 PO (16:36)
[2020-01-21] MEDS ORDERED: LINA5TAB PO (16:36)
--- NOTE | 2020-01-21 17:40 | NUR ---
Patient vomited [address] rose notified and d/c order will be cancelled
--- NOTE | 2020-01-21 19:09 | NUR ---
Patient remains stable on room air . He denies epigastric pain at this time, denies nausea . PRN lactulose administrated. All needs attended. Safety precautions in place, call light within reach,. will endorse to next shift for JAY
--- NOTE | 2020-01-21 19:45 | NUR ---
WATCH ELECTRICIAN: RECEIVED REPORT FORM ROBERT CORTEZ. PT A/O X4, ON RA RESPIRATIONS EVEN AND UNLABORED. IV ACCESS PATENT AND FLUSHING WELL, ON HL. PT DC WAS HELD TODAY. PT DENIES ANY ABDL PAIN AT THIS TIME, RECEIVED LACTULOSE TODAY. SAFETY PRECAUTIONS FOR FALL INITIATED, CALL LIGHT IN REACH. WILL CONTINUE MONITORING PT.
[2020-01-21 20:00] VITALS: BP 93/63
[2020-01-21 20:10] VITALS: BP 93/63
[2020-01-22] MEDS: BLOOD SUGAR DIAGNOSTIC 1 EACH STRIP IN SCH (06:16)
[2020-01-22] MEDS: INSULIN REGULAR, HUMAN 100 UNIT/ML 3 ML VIAL SQ PRN (06:17)
[2020-01-22 06:27] LABS: BASOPHILS # (AUTO) 0.1 /CMM (0.0-0.2); BASOPHILS % (AUTO) 1.1 % (0.0-2.0); EOSINOPHILS % (AUTO) 7.1 % (0.0-6.0); HEMATOCRIT 41 % (39-51); HEMOGLOBIN 13.4 g/dL (13.5-17.5); LYMPHOCYTES # (AUTO) 0.7 /CMM (0.8-4.8); LYMPHOCYTES % (AUTO) 13.2 % (20.0-44.0); MEAN CORPUSCULAR HGB CONC 33 g/dl (31.0-36.0); MEAN CORPUSCULAR VOLUME 87 fL (80-96); MONOCYTES # (AUTO) 0.7 /CMM (0.1-1.30); MONOCYTES % (AUTO) 13.9 % (2.0-12.0); NEUTROPHILS # (AUTO) 3.2 /CMM (1.8-8.9); NEUTROPHILS % (AUTO) 64.7 % (43.0-81.0); PLATELET COUNT (AUTO) 174 /CMM (150-450); RED BLOOD CELL COUNT(AUTO) 4.67 MIL/uL (4.5-6.0)
--- NOTE | 2020-01-22 07:01 | NUR ---
end of shift report: pt remains a/o x4, on ra, denies any abdl pain, claimed he's been passing gas. iv access remains patent and flushing well, on hl, no s/s of iv infiltration noted. accu check performed as ordered. vs remains stable, needs attended. plan of care: for dc plan home, self care. safety precautions for fall remains engaged, call light in reach, will endorse to day rn for seng.
[2020-01-22 07:07] LABS: CALCIUM, SERUM 8.7 mg/dL (8.5-10.1); CREATININE 1.6 mg/dL (0.6-1.3); MAGNESIUM 2.2 mg/dL (1.8-2.4); PHOSPHORUS 4.1 mg/dL (2.5-4.9); POTASSIUM 4.2 mmol/L (3.5-5.1)
--- NOTE | 2020-01-22 08:00 | NUR ---
MS RN OPENING NOTES Received Patient resting in bed. A/O x 4. VS stable with no acute distress. Breathing even and unlabored on room air with no respiratory distress. Denies pain. No signs and symptoms of pain. 18g PIV on LAC intact, patent and flushing well. 18g PIV on right hand intact, patent and flushing well. Safety precautions in place. Bed locked and set to lowest position with side rails x 2 up. All needs rendered at this time. Call light within reach. Will continue to monitor.
[2020-01-22] MEDS: DOCUSATE SODIUM 100 MG CAPSULE PO SCH (09:19)
[2020-01-22] MEDS: ASPIRIN EC 81 MG TABLET.DR PO SCH (09:19)
[2020-01-22 09:20] VITALS: BP 104/64
[2020-01-22] MEDS: PANTOPRAZOLE 40 MG TABLET.DR PO SCH (09:20)
[2020-01-22] MEDS: LINAGLIPTIN 5 MG TABLET PO SCH (09:20)
[2020-01-22] MEDS: METOPROLOL SUCCINATE 50 MG TAB.SR.24H PO SCH (09:20)
[2020-01-22] MEDS: AMIODARONE HCL 200 MG TABLET PO SCH (09:20)
[2020-01-22] MEDS: ISOSORBIDE MONONITRATE (30MG) 30 MG TAB.SR.24H PO SCH (09:20)
[2020-01-22] MEDS: HEPARIN SODIUM, PORCINE 5000 UNITS/1 ML VIAL SQ SCH (09:22)
--- NOTE | 2020-01-22 12:05 | NUR ---
MS USER EXPERIENCE DESIGNER NOTES Patient discharged for home at this time. VS stable with no acute distress. Breathing even and unlabored on room air with no respiratory distress. Denies pain. No signs and symptoms of pain. Removed intact 18g PIV on LAC and 18g PIV on right hand. Patient tolerated well. Skin intact. Medication reconciliation and discharge orders reviewed and explained to Patient. Patient verbalized understanding. Patient will follow up with PCP and Line Installer in 1 week. All belongings with Patient. Escorted Patient to the Lobby for safety. Patient picked up by friend, Earnest.
== END 2020-01-22 12:12 | disposition home or self-care (01) | DRG 420 ==
LOC: ER 04:52 → TELE 06:20 → MED 01-19 11:14
PROVIDERS: ADMIT Nurse Practitioner Acute Care; ATTEND Student in an Organized Health Care Education/Training Program
DX: E11.649 Type 2 diabetes mellitus with hypoglycemia without coma (principal); E78.5 Hyperlipidemia, unspecified; I13.0 Hypertensive heart and chronic kidney disease with heart failure and stage 1 through stage 4 chronic kidney disease, or unspecified chronic kidney disease; I50.22 Chronic systolic (congestive) heart failure; N18.9 Chronic kidney disease, unspecified; E11.22 Type 2 diabetes mellitus with diabetic chronic kidney disease; E87.1 Hypo-osmolality and hyponatremia; I25.10 Atherosclerotic heart disease of native coronary artery without angina pectoris; K74.60 Unspecified cirrhosis of liver; N17.0 Acute kidney failure with tubular necrosis; T38.3X5A Adverse effect of insulin and oral hypoglycemic [antidiabetic] drugs, initial encounter; Y92.009 Unspecified place in unspecified non-institutional (private) residence as the place of occurrence of the external cause; Z95.810 Presence of automatic (implantable) cardiac defibrillator; Z79.899 Other long term (current) drug therapy; Z79.84 Long term (current) use of oral hypoglycemic drugs; Z79.82 Long term (current) use of aspirin; K76.0 Fatty (change of) liver, not elsewhere classified; I69.354 Hemiplegia and hemiparesis following cerebral infarction affecting left non-dominant side; D63.8 Anemia in other chronic diseases classified elsewhere; I25.5 Ischemic cardiomyopathy; K56.41 Fecal impaction; E87.5 Hyperkalemia; I49.9 Cardiac arrhythmia, unspecified
CPT/HCPCS: 36415; 71045-TC; 74018; 76705-TC; 76770-TC; 80048-TC; 80053-TC; 80061-TC; 80076-TC; 81000-TC; 82550-TC; 82570-TC; 82962-TC; 83735-TC; 83880; 84100-TC; 84155-TC; 84300-TC; 84443-TC; 84484-TC; 85025-TC; 87081-TC; 97110-TC; 97116-TC; 97530-TC; C9803; G0378; J1644; J1815; J1940; J3490; Q2036

== ENCOUNTER 2020-01-30 03:59 | Inpatient (IN) | payer MEDICAID, SELFPAY ==
[~2020-01-30] VITALS: Ht 167.6 cm; Wt 76.7 kg
[~2020-01-30 03:59] MED LIST changes: +AMIO200T5 PO; -ASPI-1169 PO; +ASPI-1420 PO; -CARV6.252 PO; -FAMO20TA8 PO; +GLYB2.5T4 PO; -HYDR-4075 PO; +HYDR-4077 PO; +ISOS30TA6 PO; -ISOS30TA9 PO; -LEVO500T90 PO; +LINA5TAB PO; +METF-440 PO; +METO50TA7 PO; +PANT40TA49 PO; +SPIR100T5 PO
--- NOTE | 2020-01-30 04:07 | NUR ---
PATIENT CAME TO ER BED 2 C/O HYPOGLYCEMIA 59 BLOOD SUGAR. PATIENT RECEIVED D10 ON THE AMBULANCE RIG AND HAD A BLOOD SUGAR IN THE 120s. PATIENT IS AAOX4. NO SOB. BREATHING EVENLY AND UNLABORED ON ROOM AIR. CONNECTED TO THE SUPERVISOR HISTOLOGY.
--- NOTE | 2020-01-30 04:12 | NUR ---
COVID TEST COLLECTED AND SENT TO THE LAB.
--- NOTE | 2020-01-30 04:15 | NUR ---
BLOOD COLLECTED AND SENT TO THE LAB.
[2020-01-30 04:25] LABS: BASOPHILS % (AUTO) 0.6 % (0.0-2.0); EOSINOPHILS % (AUTO) 1.2 % (0.0-6.0); HEMATOCRIT 47 % (39-51); LYMPHOCYTES # (AUTO) 0.4 /CMM (0.8-4.8); LYMPHOCYTES % (AUTO) 5.8 % (20.0-44.0); MEAN CORPUSCULAR HGB CONC 32 g/dl (31.0-36.0); MEAN CORPUSCULAR VOLUME 89 fL (80-96); MONOCYTES # (AUTO) 0.6 /CMM (0.1-1.30); MONOCYTES % (AUTO) 7.5 % (2.0-12.0); NEUTROPHILS # (AUTO) 6.3 /CMM (1.8-8.9); NEUTROPHILS % (AUTO) 84.9 % (43.0-81.0); PLATELET COUNT (AUTO) 201 /CMM (150-450); RED BLOOD CELL COUNT(AUTO) 5.23 MIL/uL (4.5-6.0); WHITE BLOOD COUNT (AUTO) 7.5 K/uL (4.3-11.0)
[2020-01-30 04:39] LABS: ALBUMIN 4.3 g/dL (3.4-5.0); BILIRUBIN,DIRECT 1.2 mg/dL (0.0-0.2); BILIRUBIN,TOTAL 1.9 mg/dL (0.2-1.0); CALCIUM, SERUM 10.3 mg/dL (8.5-10.1); CREATININE 3.6 mg/dL (0.6-1.3); POTASSIUM 4.5 mmol/L (3.5-5.1); TOTAL PROTEIN, SERUM 9.7 g/dL (6.4-8.2)
--- NOTE | 2020-01-30 05:19 | NUR ---
LAB CALLED FOR RESULT, COVID NEGATIVE.
[2020-01-30] MEDS ORDERED: HYDROCODONE/APAP 5/325MG TABLET PO PRN (05:30)
[2020-01-30] MEDS ORDERED: DEXTROSE 50%-WATER 50 ML DISP.SYRIN IV PRN (05:30)
[2020-01-30] MEDS ORDERED: ACETAMINOPHEN 325 MG TABLET PO PRN (05:30)
[2020-01-30] MEDS ORDERED: MAG HYDROX/AL HYDROX/SIMETH 30 ML UDC PO PRN (05:30)
[2020-01-30] MEDS ORDERED: IV D5/0.45 NACL 1,000 ML IV PRN (05:30)
[2020-01-30] MEDS ORDERED: MORPHINE SULFATE INJ 2 MG/ML DISP.SYRIN IV PRN (05:30)
[2020-01-30] MEDS ORDERED: MAGNESIUM HYDROXIDE 30 ML UDC PO PRN (05:30)
--- NOTE | 2020-01-30 05:33 | NUR ---
TRIED CALLING FOR REPORT, NURSE IS BUSY, WILL CALL ME BACK.
[2020-01-30 05:39] LABS: B-TYPE NATRIURETIC PEPTIDE 8715 PG/ML (0-125); MAGNESIUM 2.4 mg/dL (1.8-2.4); PHOSPHORUS 6.1 mg/dL (2.5-4.9)
--- NOTE | 2020-01-30 05:44 | NUR ---
REPORT GIVEN TO KINJAL CORTEZ FOR JAY.
[2020-01-30] MEDS: ONDANSETRON HCL/PF 4 MG/2 ML VIAL IVP PRN ×2 (05:55→22:20)
--- NOTE | 2020-01-30 05:58 | NUR ---
PATIENT RETURNED FROM CT.
[2020-01-30 06:09] VITALS: BP 102/71
--- NOTE | 2020-01-30 06:09 | NUR ---
PATIENT TAKEN UP TO ASSIGNED ROOM.
--- NOTE | 2020-01-30 06:09 | NUR ---
RN ADMITTING NOTE RECEIVED PT FROM ER VIA [facility] ACCOMPANIED BY JUAN CORTEZ AND ANOTHER ER STAFF, PATIENT IS AMBULATORY AND WALKED TO THE BED. PT IS ALERT AND ORIENTED X4. PT ON ROOM AIR WITH RESPIRATIONS EVEN AND UNLABORED. COMPREHENSIVE PHYSICAL ASSESSMENT DONE. CALL LIGHT WITHIN REACH, SAFETY MEASURES IN PLACE, WILL CONTINUE MONITOR AND ASSESS THROUGHOUT THE SHIFT. WILL CARRY OUT MD ORDERS ACCORDINGLY.
--- NOTE | 2020-01-30 07:25 | NUR ---
television news anchor notes endorse to rn day shift to f/u pna vaccine .
--- NOTE | 2020-01-30 07:30 | NUR ---
PROMOTIONAL ADVERTISING ASSISTANT AM NOTES RECEIVED IN BED, ON ROOM AIR, DENIES, SOB, RESPIRATION UNLABORED, SINUS RHYTHM WITH FIRST DEG AV BLOCK ON MONITOR, DENIES CHEST PAIN OR DISCOMFORT AT THIS TIME, WITH D5 1/2 NS AT 75 ML/HR INFUSING TO LAC G 18 IV ACCES, SITE CLEAR. ON CCHO DIET. CAN AMBULATE TO BATHROOM WITH ASSIST. INTACT SKIN. CALL LIGHT WITHIN REACH, SAFETY MEASURES IN PLACE, WILL CONTINUE MONITOR.
[2020-01-30] MEDS: BLOOD SUGAR DIAGNOSTIC 1 EACH STRIP IN SCH ×4 (07:33→22:37)
[2020-01-30 08:00] VITALS: BP 91/55
--- NOTE | 2020-01-30 09:30 | NUR ---
RN NOTES DUE MEDS GIVEN
--- NOTE | 2020-01-30 10:15 | NUR ---
RN NOTES DR. RANDALL AT BEDSIDE.
[2020-01-30 12:00] VITALS: BP 102/67
[2020-01-30] MEDS: ALBUMIN 25% 25 GM in PREMIX 1 EA IV SCH ×2 (14:16→22:22)
--- NOTE | 2020-01-30 15:33 | NUR ---
RN NOTES URINE SPECIMEN COLLECTED AND CALLED IN TO LABORATORY FOR WELDING MACHINE OPERATOR HELPER GAS, SPOKE WITH PABLO
[2020-01-30 16:00] VITALS: BP 80/56
--- NOTE | 2020-01-30 18:27 | NUR ---
STUDENT LIFE DEAN CLOSING NOTES PT RESTING IN BED, ALERT ORIENTED X 4, ON ROOM AIR, DENIES, SOB, RESPIRATION UNLABORED, SINUS RHYTHM WITH FIRST DEG AV BLOCK ON MONITOR, DENIES CHEST PAIN OR DISCOMFORT AT THIS TIME, WITH D5 1/2 NS AT 75 ML/HR INFUSING TO LAC G 18 IV ACCES, SITE CLEAR. ON CCHO DIET. CAN AMBULATE TO BATHROOM WITH ASSIST. INTACT SKIN. CALL LIGHT WITHIN REACH, SAFETY MEASURES IN PLACE, BED LAOW LOCKED. ALL NEEDS MET, PM CARE DONE EARLIER. NO OTHER SIGNIFICANT CHANGE IN CONDITION. WILL ENDORSE TO NEXT SHIFT FOR JAY.
[2020-01-30] MEDS ORDERED: POTASSIUM CHLORIDE 20 MEQ TAB.PRT.SR PO ONE (18:30)
[2020-01-30 19:29] LABS: CREATININE, URINE 79.9 MG/DL (30.0-125.0); URINE TOTAL PROTEIN 17.4 mg/dL (0-11.9)
[2020-01-30 19:44] LABS: BILIRUBIN,URINE NEGATIVE (NEGATIVE); BLOOD, URINE NEGATIVE Ery/uL (NEGATIVE); COLOR,URINE YELLOW (YELLOW); LEUKOCYTE ESTERASE ,URINE NEGATIVE (NEGATIVE); NITRITE, URINE NEGATIVE (NEGATIVE); PH,URINE 5.5 (5.0-8.0); PROTEIN,URINE NEGATIVE (NEGATIVE); UGLUCOSE NEGATIVE (NEGATIVE)
[2020-01-30 19:51] LABS: BACTERIA,URINE None seen /HPF (None Seen); RBC,URINE 0-2 /HPF (0-2); SQUAMOUS EPITHELIAL CELL,UR 0-2 /HPF (None Seen); WBC,URINE 0-2 /HPF (0-3)
[2020-01-30 20:00] VITALS: BP 100/67
--- NOTE | 2020-01-30 20:00 | NUR ---
MANAGER SHIP AM NOTES RECEIVED IN BED,AWAKE AND RESPONSIVE,A/OX4. ON ROOM AIR, NO SOB, NO DISTRESS NOTED ,BREATHING EVEN UNLABORED, SINUS RHYTHM 74 WITH FIRST DEG AV BLOCK ON MONITOR, DENIES CHEST PAIN OR DISCOMFORT AT THIS TIME, WITH LAC G 18 IV ACCES, SITE CLEAR INTACT AND PATENT . ON CCHO DIET. CAN AMBULATE TO BATHROOM WITH ASSIST. INTACT SKIN. CALL LIGHT WITHIN REACH, SAFETY MEASURES IN PLACE, WILL CONTINUE MONITOR. V/S STABLE AFEBRILE.
[2020-01-30 20:19] LABS: EOSINOPHIL,URINE None Seen
--- NOTE | 2020-01-30 21:00 | NUR ---
telephone clerk notes All due meds given as ordered no ase noted .will continue to monitor pts.
--- NOTE | 2020-01-30 22:20 | NUR ---
SHOEMAKER APPRENTICE NOTES C/O NAUSEATED , ZOFRAN 4MG IV GIVEN ORDERED WITH EFFECT.
[2020-01-30] MEDS: INSULIN REGULAR, HUMAN 100 UNIT/ML 3 ML VIAL SQ PRN (22:37)
--- NOTE | 2020-01-30 22:38 | NUR ---
telegraph service rater notes blood sugar of 144mg/dl 2 units of regular insulin given per sliding scale,will check BS again am.will continue to monitor.
[2020-01-31] VITALS: BP 97/65
--- NOTE | 2020-01-31 | NUR ---
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
[2020-01-31 04:00] VITALS: BP 105/61
[2020-01-31] MEDS: ALBUMIN 25% 25 GM in PREMIX 1 EA IV SCH (05:52)
--- NOTE | 2020-01-31 06:52 | NUR ---
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
--- NOTE | 2020-01-31 07:30 | NUR ---
ISSUER AM NOTES RECEIVED IN BED, ON ROOM AIR, DENIES, SOB, RESPIRATION UNLABORED, SINUS RHYTHM WITH FIRST DEG AV BLOCK ON MONITOR, DENIES CHEST PAIN OR DISCOMFORT AT THIS TIME, LAC G 18 IV ACCES, FLUSHES WELL, SITE CLEAR. ON CCHO DIET. CAN AMBULATE TO BATHROOM WITH ASSIST. INTACT SKIN. CALL LIGHT WITHIN REACH, SAFETY MEASURES IN PLACE, WILL CONTINUE MONITOR.
[2020-01-31 07:47] LABS: ALBUMIN 4.4 g/dL (3.4-5.0); BILIRUBIN,TOTAL 1.6 mg/dL (0.2-1.0); CALCIUM, SERUM 9.7 mg/dL (8.5-10.1); CREATININE 3.1 mg/dL (0.6-1.3); MAGNESIUM 2.4 mg/dL (1.8-2.4); PHOSPHORUS 4.4 mg/dL (2.5-4.9); POTASSIUM 5.5 mmol/L (3.5-5.1); TOTAL PROTEIN, SERUM 8.7 g/dL (6.4-8.2)
[2020-01-31] MEDS: BLOOD SUGAR DIAGNOSTIC 1 EACH STRIP IN SCH ×4 (07:50→22:00)
[2020-01-31 08:00] VITALS: BP 102/66
[2020-01-31] MEDS: INSULIN REGULAR, HUMAN 100 UNIT/ML 3 ML VIAL SQ PRN ×2 (08:06→11:17)
[2020-01-31 08:14] LABS: BASOPHILS # (AUTO) 0.1 /CMM (0.0-0.2); BASOPHILS % (AUTO) 1.2 % (0.0-2.0); EOSINOPHILS % (AUTO) 5.3 % (0.0-6.0); HEMATOCRIT 39 % (39-51); HEMOGLOBIN 12.9 g/dL (13.5-17.5); LYMPHOCYTES # (AUTO) 0.6 /CMM (0.8-4.8); LYMPHOCYTES % (AUTO) 11.9 % (20.0-44.0); MEAN CORPUSCULAR HGB CONC 33 g/dl (31.0-36.0); MEAN CORPUSCULAR VOLUME 88 fL (80-96); MONOCYTES # (AUTO) 0.7 /CMM (0.1-1.30); MONOCYTES % (AUTO) 12.7 % (2.0-12.0); NEUTROPHILS # (AUTO) 3.8 /CMM (1.8-8.9); NEUTROPHILS % (AUTO) 68.9 % (43.0-81.0); PLATELET COUNT (AUTO) 172 /CMM (150-450); RED BLOOD CELL COUNT(AUTO) 4.45 MIL/uL (4.5-6.0); WHITE BLOOD COUNT (AUTO) 5.5 K/uL (4.3-11.0)
[2020-01-31] MEDS: PANTOPRAZOLE 40 MG TABLET.DR PO SCH (09:05)
[2020-01-31] MEDS: ASPIRIN EC 81 MG TABLET.DR PO SCH (09:05)
--- NOTE | 2020-01-31 09:30 | NUR ---
RN NOTES DUE MEDS GIVEN
[2020-01-31] MEDS: ATORVASTATIN 40 MG TABLET PO SCH (11:03)
[2020-01-31 12:00] VITALS: BP_SYST 100; BP_DIAS 60; BP_DIAS 66
[2020-01-31 16:00] VITALS: BP 98/65
--- NOTE | 2020-01-31 18:28 | NUR ---
RAILROAD OPERATOR CLOSING NOTES PT RESTING IN BED, ALERT ORIENTED X 4, ON ROOM AIR, DENIES, SOB, RESPIRATION UNLABORED, SINUS RHYTHM WITH FIRST DEG AV BLOCK ON MONITOR, DENIES CHEST PAIN OR DISCOMFORT AT THIS TIME, WITH D5 1/2 NS AT 75 ML/HR INFUSING TO LAC G 18 IV ACCES, SITE CLEAR. ON CCHO DIET. CAN AMBULATE TO BATHROOM WITH ASSIST. INTACT SKIN. CALL LIGHT WITHIN REACH, SAFETY MEASURES IN PLACE, BED LOW LOCKED. ALL NEEDS MET, PM CARE DONE EARLIER. NO OTHER SIGNIFICANT CHANGE IN CONDITION. WILL ENDORSE TO NEXT SHIFT FOR JAY.
--- NOTE | 2020-01-31 19:40 | NUR ---
GRANTS MANAGER NOTE PT IN BED AWAKE. A/O X 3 TRINIDADIAN SPEAKING, NO DISTRESS OR DISCOMFORT NOTED. DENIES PAIN. ON TELE MONITOR SR WITH 1ST DEGREE AV BLOCK AND PVC HR 67. LAC #18 G SL INTACT AND PATENT. ALL NEEDS ATTENDED. SIDE RAILS UP X 2 AND CALL LIGHT WITHIN REACH. VSS. CONTINUE TO MONITOR.
[2020-01-31 20:00] VITALS: BP_SYST 103; BP_SYST 131; BP_DIAS 58; BP_DIAS 68
[2020-02-01] VITALS: BP 98/66
[2020-02-01 04:00] VITALS: BP 105/76
[2020-02-01 06:04] LABS: BASOPHILS # (AUTO) 0.1 /CMM (0.0-0.2); EOSINOPHILS % (AUTO) 7.1 % (0.0-6.0); HEMATOCRIT 40 % (39-51); HEMOGLOBIN 13.3 g/dL (13.5-17.5); LYMPHOCYTES # (AUTO) 0.7 /CMM (0.8-4.8); LYMPHOCYTES % (AUTO) 12.1 % (20.0-44.0); MEAN CORPUSCULAR HGB CONC 33 g/dl (31.0-36.0); MEAN CORPUSCULAR VOLUME 87 fL (80-96); MONOCYTES # (AUTO) 0.8 /CMM (0.1-1.30); MONOCYTES % (AUTO) 13.8 % (2.0-12.0); NEUTROPHILS # (AUTO) 3.6 /CMM (1.8-8.9); PLATELET COUNT (AUTO) 176 /CMM (150-450); RED BLOOD CELL COUNT(AUTO) 4.58 MIL/uL (4.5-6.0); WHITE BLOOD COUNT (AUTO) 5.5 K/uL (4.3-11.0)
[2020-02-01 06:05] LABS: CALCIUM, SERUM 9.4 mg/dL (8.5-10.1); CREATININE 2.6 mg/dL (0.6-1.3); POTASSIUM 5.1 mmol/L (3.5-5.1)
--- NOTE | 2020-02-01 06:48 | NUR ---
TILT WALL SUPERVISOR NOTE PT IN BED ASLEEP, AROUSABLE. NO DISTRESS OR DISCOMFORT NOTED. DENIES PAIN. ON TELE SR WITH 1ST DEGREE AV BLOCK WITH PVC HR 70. SIDE RAILS UP X 2 AND CALL LIGHT WITHIN REACH. WILL ENDORSE TO DAY SHIFT NURSE FOR CONTINUE TO CARE.
--- NOTE | 2020-02-01 07:30 | NUR ---
RN NOTE RECEIVED PT IN BED RESTING COMFORTABLY IN MODERATE HIGH BACK REST. A/O X 3. NO SIGNS OF DISTRESS NOTED AT THIS TIME. ON TELE MONITOR SR WITH 1ST DEGREE AV BLOCK AND PVC HR 60'S. LAC #18. SL, INTACT AND PATENT. SIDE RAILS UP X 2 AND CALL LIGHT WITHIN REACH. WILL CONTINUE TO MONITOR.
[2020-02-01] MEDS: BLOOD SUGAR DIAGNOSTIC 1 EACH STRIP IN SCH ×4 (07:36→22:00)
[2020-02-01] MEDS: INSULIN REGULAR, HUMAN 100 UNIT/ML 3 ML VIAL SQ PRN ×4 (07:47→16:51)
[2020-02-01 08:00] VITALS: BP 99/63
[2020-02-01] MEDS: ATORVASTATIN 40 MG TABLET PO SCH (08:23)
[2020-02-01] MEDS: PANTOPRAZOLE 40 MG TABLET.DR PO SCH (08:23)
[2020-02-01] MEDS: ASPIRIN EC 81 MG TABLET.DR PO SCH (08:23)
[2020-02-01 12:00] VITALS: BP 103/68
[2020-02-01 16:00] VITALS: BP 101/66
--- NOTE | 2020-02-01 18:27 | NUR ---
RN NOTE PATIENT IN BED RESTING COMFORTABLY IN MODERATE HIGH BACK REST. A/O X 3. NO SIGNS OF DISTRESS NOTED THROUGHOUT THE SHIFT. ON TELE MONITOR SR WITH HR 70'S. LAC #18. SL, INTACT AND PATENT. SIDE RAILS UP X 2 AND CALL LIGHT WITHIN REACH. WILL ENDORSE TO SPEED WINDER NURSE FOR JAY.
[2020-02-01 20:00] VITALS: BP 99/55
--- NOTE | 2020-02-01 20:00 | NUR ---
QUALITY ASSURANCE SUPERVISOR CHASSIS NOTE PT IN BED AWAKE. A/O X 3, TAIWANESE SPEAKING. NO SOB, NO DISTRESS OR DISCOMFORT NOTED. DENIES PAIN. ON TELE MONITOR SR WITH 1ST DEGREE AV BLOCK WITH PVC HR 74. LAC #18 G SL INTACT AND PATENT. SIDE RAILS UP X 2 AND CALL LIGHT WITHIN REACH. VSS. CONTINUE TO MONITOR HIM.
[2020-02-02] VITALS: BP 121/44
[2020-02-02 04:00] VITALS: BP 102/69
[2020-02-02 06:10] LABS: BASOPHILS # (AUTO) 0.1 /CMM (0.0-0.2); BASOPHILS % (AUTO) 1.4 % (0.0-2.0); EOSINOPHILS % (AUTO) 7.1 % (0.0-6.0); HEMATOCRIT 40 % (39-51); HEMOGLOBIN 13.6 g/dL (13.5-17.5); LYMPHOCYTES # (AUTO) 0.5 /CMM (0.8-4.8); LYMPHOCYTES % (AUTO) 10.2 % (20.0-44.0); MEAN CORPUSCULAR HGB CONC 34 g/dl (31.0-36.0); MEAN CORPUSCULAR VOLUME 88 fL (80-96); MONOCYTES # (AUTO) 0.9 /CMM (0.1-1.30); MONOCYTES % (AUTO) 16.9 % (2.0-12.0); NEUTROPHILS # (AUTO) 3.4 /CMM (1.8-8.9); NEUTROPHILS % (AUTO) 64.4 % (43.0-81.0); PLATELET COUNT (AUTO) 176 /CMM (150-450); RED BLOOD CELL COUNT(AUTO) 4.61 MIL/uL (4.5-6.0); WHITE BLOOD COUNT (AUTO) 5.2 K/uL (4.3-11.0)
[2020-02-02 06:17] LABS: ALBUMIN 3.8 g/dL (3.4-5.0); BILIRUBIN,TOTAL 1.4 mg/dL (0.2-1.0); CALCIUM, SERUM 9.3 mg/dL (8.5-10.1); CREATININE 2.3 mg/dL (0.6-1.3); POTASSIUM 4.9 mmol/L (3.5-5.1); TOTAL PROTEIN, SERUM 8.3 g/dL (6.4-8.2)
--- NOTE | 2020-02-02 06:41 | NUR ---
DIE FINISHER FORGING NOTE PT IN BED ASLEEP, AROUSABLE NO DISTRESS OR DISCOMFORT NOTED. DENIES PAIN ON TELE SR WITH 1ST DEGREE AV BLOCK HR 78 WITH PVC. SIDE RAILS UP X 2 AND CALL LIGHT WITHIN REACH. WILL ENDORSE TO DAY SHIFT NURSE FOR CONTINUE TO CARE.
[2020-02-02 07:20] LABS: EOSINOPHILS % (MANUAL) 7 % (0-4); LYMPHOCYTES % (MANUAL) 7 % (16-48); MONOCYTES % (MANUAL) 15 % (0-11.0); NEUTROPHILS % (MANUAL) 71 (42-76)
--- NOTE | 2020-02-02 07:36 | NUR ---
telephone services sales representative note patient in bed ,alert oriented x3 ,on tele monitor sr hr 74 , on ra, no sob noted at this time , blood sugar checked as ordered , lac hl intact and flushed well , bed in lowest and locked position, plan of care discussed with patient , not in distress at this time ,will cont to monitor closely
[2020-02-02 08:00] VITALS: BP 101/69
[2020-02-02] MEDS: ASPIRIN EC 81 MG TABLET.DR PO SCH (08:01)
[2020-02-02] MEDS: PANTOPRAZOLE 40 MG TABLET.DR PO SCH (08:01)
[2020-02-02] MEDS: ATORVASTATIN 40 MG TABLET PO SCH (08:01)
[2020-02-02] MEDS: BLOOD SUGAR DIAGNOSTIC 1 EACH STRIP IN SCH ×2 (08:02→11:24)
[2020-02-02] MEDS ORDERED: METOPROLOL SUCCINATE 25 MG TAB.SR.24H PO SCH (08:30)
[2020-02-02] MEDS: ONDANSETRON HCL/PF 4 MG/2 ML VIAL IVP PRN ×2 (09:15→14:30)
--- NOTE | 2020-02-02 09:18 | NUR ---
telegraph editor note c\o nausea, Zofran 4mg given as ordered
[2020-02-02 12:00] VITALS: BP 116/62
--- NOTE | 2020-02-02 12:37 | NUR ---
telemarketing fundraiser note per dr toussaint ok to give pna vaccine and ok to discharge home, order carried out
[2020-02-02] MEDS ORDERED: PNEUMOCOCCAL 23-VAL P-SAC VAC 0.5 ML VIAL SQ ONE (13:30)
[2020-02-02] MEDS ORDERED: METO25TA4 PO (13:52)
--- NOTE | 2020-02-02 14:13 | NUR ---
CHILDCARE CENTER DIRECTOR NOTE DISCHARGE INSTRUCTION GIVEN, UNDERSTANDS, HL REMOVED, TELE IS REMOVED, PX GIVEN AND EXPLAINED HOW TO TAKE AND POSSIBLE SIDE EFFECTS ,INSTRUCTED TO F\U WITH PRIMARY CARE DOCTOR AND FREIGHT AND PASSENGER AGENT REFERRED TO [facility] FOR FURTHER F\U APPOINTMENT AND DIABETIC MEDS Addendum: 02/02/20 at 1438 by TIERRA MOSQUEDA RN BELONGING CHECKED ,HL ON LT AC REMOVED, NO BLEEDING NOTED, DRY DRESSING APPLIED
--- NOTE | 2020-02-02 14:35 | NUR ---
NETWORK OPERATIONS CENTER ENGINEER NNOTE PER SMOKE TESTER RECOURSES [facility] GIVEN AND BLOOD SUGAR REACHED, 118 MG\DL BP105/78 SATURATION 96%, NOT IN DISTRESS
--- NOTE | 2020-02-02 14:52 | NUR ---
SHAPER SET UP OPERATOR NOTE TAKEN TO [place]YTON ON W\C, WENT HOME WITH STABLE CONDITION, TAKEN BY EYAL RAMIREZ Addendum: 02/02/20 at 1453 by TIERRA MOSQUEDA RN TAKEN TO ANTOINETTE
== END 2020-02-02 14:00 | disposition home or self-care (01) | DRG 638 ==
LOC: ER 04:00 → TELE1 05:46 → MEDSG1 02-02 08:10
PROVIDERS: ADMIT Family Medicine
DX: E11.649 Type 2 diabetes mellitus with hypoglycemia without coma (principal); E87.1 Hypo-osmolality and hyponatremia; I13.0 Hypertensive heart and chronic kidney disease with heart failure and stage 1 through stage 4 chronic kidney disease, or unspecified chronic kidney disease; I50.22 Chronic systolic (congestive) heart failure; N17.0 Acute kidney failure with tubular necrosis; N18.9 Chronic kidney disease, unspecified; E83.39 Other disorders of phosphorus metabolism; E11.22 Type 2 diabetes mellitus with diabetic chronic kidney disease; E78.5 Hyperlipidemia, unspecified; K21.9 Gastro-esophageal reflux disease without esophagitis; Z95.810 Presence of automatic (implantable) cardiac defibrillator; Z79.84 Long term (current) use of oral hypoglycemic drugs; Z79.82 Long term (current) use of aspirin; Z79.899 Other long term (current) drug therapy; T38.3X5A Adverse effect of insulin and oral hypoglycemic [antidiabetic] drugs, initial encounter; Y92.009 Unspecified place in unspecified non-institutional (private) residence as the place of occurrence of the external cause; E86.1 Hypovolemia; I25.10 Atherosclerotic heart disease of native coronary artery without angina pectoris; K74.60 Unspecified cirrhosis of liver; I25.5 Ischemic cardiomyopathy; E83.52 Hypercalcemia; E87.5 Hyperkalemia; I69.30 Unspecified sequelae of cerebral infarction; W18.30XA Fall on same level, unspecified, initial encounter
CPT/HCPCS: 36415; 70450-TC; 80048-TC; 80053-TC; 80076-TC; 81000-TC; 82550-TC; 82570-TC; 82962-TC; 83735-TC; 83880; 83970; 84100-TC; 84155; 84155-TC; 84165; 84300-TC; 84484-TC; 85025-TC; 87081-TC; 90732; A4216; C9803; G0378; J1815; J2405; J3490; P9047

== ENCOUNTER 2020-03-03 22:45 | Emergency (ER) | payer MEDICAID, SELFPAY ==
[~2020-03-03] VITALS: Ht 175.3 cm; Wt 77.1 kg
[~2020-03-03 22:45] MED LIST changes: -FURO-144 PO; -GLYB2.5T4 PO; -LINA5TAB PO; -METF-440 PO; +METO25TA4 PO; -METO50TA7 PO; -SPIR100T5 PO
[2020-03-03] MEDS ORDERED: ONDANSETRON HCL/PF 4 MG/2 ML VIAL ONE (23:19)
[2020-03-03 23:24] LABS: BASOPHILS # (AUTO) 0.1 /CMM (0.0-0.2); BASOPHILS % (AUTO) 2.6 % (0.0-2.0); HEMATOCRIT 38 % (39-51); HEMOGLOBIN 12.5 g/dL (13.5-17.5); LYMPHOCYTES # (AUTO) 0.3 /CMM (0.8-4.8); LYMPHOCYTES % (AUTO) 5.6 % (20.0-44.0); MEAN CORPUSCULAR HGB CONC 33 g/dl (31.0-36.0); MEAN CORPUSCULAR VOLUME 87 fL (80-96); MONOCYTES # (AUTO) 0.4 /CMM (0.1-1.30); MONOCYTES % (AUTO) 7.7 % (2.0-12.0); NEUTROPHILS # (AUTO) 3.6 /CMM (1.8-8.9); NEUTROPHILS % (AUTO) 78.1 % (43.0-81.0); PLATELET COUNT (AUTO) 136 /CMM (150-450); WHITE BLOOD COUNT (AUTO) 4.6 K/uL (4.3-11.0)
[2020-03-03] MEDS: IV NS 0.9% 500 ML BAG IV ONE (23:27)
[2020-03-03] MEDS: ONDANSETRON HCL/PF 4 MG/2 ML VIAL IVP ONE (23:27)
[2020-03-03 23:31] LABS: CALCIUM, SERUM 9.8 mg/dL (8.5-10.1); CREATININE 2.2 mg/dL (0.6-1.3)
[2020-03-03 23:37] LABS: ALBUMIN 3.7 g/dL (3.4-5.0); BILIRUBIN,DIRECT 1.3 mg/dL (0.0-0.2); BILIRUBIN,TOTAL 2.1 mg/dL (0.2-1.0); TOTAL PROTEIN, SERUM 7.8 g/dL (6.4-8.2)
--- NOTE | 2020-03-04 00:05 | NUR ---
PATIENT CAME TO ER BED 3 C/O MIDEPIGASTRIC PAIN THAT HAD OCCURRED ABOUT 2x HR DIRECTOR FUNERAL W/ NAUSEA AND VOMITING 3x SINCE THEN. PATIENT STATES THAT THE PAIN IS SIMILAR TO A "PUNCHING SENSATION". PATIENT IS AAOX4. NO SOB. BREATHING EVENLY AND UNLABORED ON ROOM AIR. CONNECTED TO THE MONITOR.
[2020-03-04] MEDS: MORPHINE SULFATE INJ 2 MG/ML DISP.SYRIN IV ONE (00:35)
--- NOTE | 2020-03-04 00:35 | NUR ---
URINE COLLECTED AND SENT TO THE LAB.
[2020-03-04 00:40] LABS: BILIRUBIN,URINE SMALL (NEGATIVE); BLOOD, URINE Negative Ery/uL (NEGATIVE); COLOR,URINE ORANGE (YELLOW); LEUKOCYTE ESTERASE ,URINE Negative (NEGATIVE); NITRITE, URINE Negative (NEGATIVE); PH,URINE 5.5 (5.0-8.0); PROTEIN,URINE 30 mg/dl (NEGATIVE); UGLUCOSE Negative (NEGATIVE)
[2020-03-04 01:48] LABS: BACTERIA,URINE None seen /HPF (None Seen); MUCUS,URINE Few /LPF (None Seen); RBC,URINE 0-2 /HPF (0-2); SQUAMOUS EPITHELIAL CELL,UR Few /HPF (None Seen); WBC,URINE 0-2 /HPF (0-3)
--- NOTE | 2020-03-04 01:59 | NUR ---
IV removed. Catheter intact and site benign. Pressure and 4x4 applied to site. No bleeding noted.
[2020-03-04 02:00] VITALS: BP 123/76
== END 2020-03-04 02:00 | disposition home or self-care (01) ==
LOC: ER 22:45
DX: K80.50 Calculus of bile duct without cholangitis or cholecystitis without obstruction (principal); I44.4 Left anterior fascicular block; I45.10 Unspecified right bundle-branch block; I10 Essential (primary) hypertension; E78.5 Hyperlipidemia, unspecified; K21.9 Gastro-esophageal reflux disease without esophagitis; E11.9 Type 2 diabetes mellitus without complications; Z95.5 Presence of coronary angioplasty implant and graft; Z98.890 Other specified postprocedural states; Z60.2 Problems related to living alone; Z79.82 Long term (current) use of aspirin; Z79.899 Other long term (current) drug therapy
CPT/HCPCS: 36415; 71045; 74176; 76705; 80048; 80076; 81001; 83690; 84484; 85025; 93005; 96374; 96375; 99285; J2405; J7040

== ENCOUNTER 2020-07-04 00:20 | Emergency (ER) | payer MEDICAID ==
[~2020-07-04] VITALS: Ht 172.7 cm; Wt 91.6 kg
[~2020-07-04 00:20] MED LIST changes: -ISOS30TA6 PO; +ISOS30TA86 PO
--- NOTE | 2020-07-04 00:29 | NUR ---
provided pt with sandwich per dr. veronica.
--- NOTE | 2020-07-04 00:30 | NUR ---
SOFTWARE SOLUTIONS ARCHITECT AT BEDSIDE
--- NOTE | 2020-07-04 00:31 | NUR ---
PT BIBRA FOR LOW BG, RA GAVE D10 ELECTRICAL HARDWARE ENGINEER/ PT PLACED IN BED 10 ON MONITOR AND PULSE OX. VSS. PT AWAKE EATING A SANDWHICH.
[2020-07-04 00:44] LABS: EOSINOPHILS % (AUTO) 0.5 % (0.0-6.0); HEMATOCRIT 36 % (39-51); HEMOGLOBIN 11.2 g/dL (13.5-17.5); LYMPHOCYTES # (AUTO) 0.5 /CMM (0.8-4.8); LYMPHOCYTES % (AUTO) 12.6 % (20.0-44.0); MEAN CORPUSCULAR HGB CONC 31 g/dl (31.0-36.0); MEAN CORPUSCULAR VOLUME 89 fL (80-96); MONOCYTES # (AUTO) 0.6 /CMM (0.1-1.30); MONOCYTES % (AUTO) 12.8 % (2.0-12.0); NEUTROPHILS # (AUTO) 3.2 /CMM (1.8-8.9); NEUTROPHILS % (AUTO) 73.1 % (43.0-81.0); PLATELET COUNT (AUTO) 123 /CMM (150-450); RED BLOOD CELL COUNT(AUTO) 4.02 MIL/uL (4.5-6.0); WHITE BLOOD COUNT (AUTO) 4.3 K/uL (4.3-11.0)
[2020-07-04 00:59] LABS: CALCIUM, SERUM 8.9 mg/dL (8.5-10.1); CREATININE 3.2 mg/dL (0.6-1.3); POTASSIUM 4.8 mmol/L (3.5-5.1)
--- NOTE | 2020-07-04 03:19 | NUR ---
IV removed. Catheter intact and site benign. Pressure and 4x4 applied to site. No bleeding noted.
--- NOTE | 2020-07-04 03:19 | NUR ---
Patient discharged to home in stable condition. Written and verbal after care instructions given. Patient verbalizes understanding of instruction. Pt ambulated out of ED with steady gait using a abby. VSS. AAOX4.
[2020-07-04 03:20] VITALS: BP 124/73
== END 2020-07-04 03:20 | disposition home or self-care (01) ==
LOC: ER 00:22
DX: E11.649 Type 2 diabetes mellitus with hypoglycemia without coma (principal); I12.0 Hypertensive chronic kidney disease with stage 5 chronic kidney disease or end stage renal disease; E11.22 Type 2 diabetes mellitus with diabetic chronic kidney disease; N18.6 End stage renal disease; Z99.2 Dependence on renal dialysis; E78.5 Hyperlipidemia, unspecified; K21.9 Gastro-esophageal reflux disease without esophagitis; Z60.2 Problems related to living alone; Z79.899 Other long term (current) drug therapy; Z79.82 Long term (current) use of aspirin
CPT/HCPCS: 36415; 80048-TC; 82962-TC; 85025-TC

== ENCOUNTER 2020-08-13 08:25 | Inpatient (IN) | payer MEDICAID ==
[~2020-08-13] VITALS: Ht 175.3 cm; Wt 84.4 kg
--- NOTE | 2020-08-13 08:30 | NUR ---
ARLENERA 40 FROM HOME C/O LOW BLOOD SUGAR 53. NOTED CHILLS AND WEAKNESS ORAL GLUCOSE 15MG GIVEN BY EMS CANOE MAKER. PATIENT A/OX4, BREATHING EVEN AND UNLABORED, NO SOB NOTED. DR. ANN AT BEDSIDE.
--- NOTE | 2020-08-13 08:35 | NUR ---
IV LINE ESTABLISHED, BLOOD DRAWN AND SENT T O LAB. BS 76 AFTER GLUCOSE GEL FROM [facility].
[2020-08-13 08:42] LABS: BASOPHILS # (AUTO) 0.1 /CMM (0.0-0.2); BASOPHILS % (AUTO) 0.8 % (0.0-2.0); EOSINOPHILS % (AUTO) 3.8 % (0.0-6.0); HEMATOCRIT 43 % (39-51); HEMOGLOBIN 13.6 g/dL (13.5-17.5); LYMPHOCYTES # (AUTO) 0.6 /CMM (0.8-4.8); LYMPHOCYTES % (AUTO) 8.6 % (20.0-44.0); MEAN CORPUSCULAR HGB CONC 32 g/dl (31.0-36.0); MEAN CORPUSCULAR VOLUME 87 fL (80-96); MONOCYTES # (AUTO) 0.7 /CMM (0.1-1.30); MONOCYTES % (AUTO) 9.9 % (2.0-12.0); NEUTROPHILS # (AUTO) 5.6 /CMM (1.8-8.9); NEUTROPHILS % (AUTO) 76.9 % (43.0-81.0); PLATELET COUNT (AUTO) 146 /CMM (150-450); RED BLOOD CELL COUNT(AUTO) 4.95 MIL/uL (4.5-6.0); WHITE BLOOD COUNT (AUTO) 7.2 K/uL (4.3-11.0)
--- NOTE | 2020-08-13 08:47 | NUR ---
DAVINA JACOBSON APPLIED ON THE PATIENT.
[2020-08-13] MEDS ORDERED: APIX5TAB PO (08:53)
[2020-08-13] MEDS ORDERED: LEVO50TA8 PO (08:53)
[2020-08-13] MEDS ORDERED: FURO40TA5 PO (08:53)
[2020-08-13 08:54] LABS: CREATININE 3.6 mg/dL (0.6-1.3); POTASSIUM 4.1 mmol/L (3.5-5.1)
[2020-08-13] MEDS ORDERED: GLIP5TAB13 PO (08:54)
[2020-08-13 09:00] LABS: BILIRUBIN,DIRECT 0.8 mg/dL (0.0-0.2); BILIRUBIN,TOTAL 1.6 mg/dL (0.2-1.0); TOTAL PROTEIN, SERUM 9.7 g/dL (6.4-8.2)
--- NOTE | 2020-08-13 10:02 | NUR ---
PATIENT RESTING, US GALLBLADDER DONE.
[2020-08-13] MEDS ORDERED: CEFTRIAXONE 1GM BAG (ER ONLY) 1 GM/50 ML PIGGYBACK IV ONE (11:00)
[2020-08-13] MEDS ORDERED: CEFTRIAXONE 1GM BAG (ER ONLY) 50 ML IV ONE (11:33)
[2020-08-13 12:15] LABS: BILIRUBIN,URINE NEGATIVE (NEGATIVE); COLOR,URINE YELLOW (YELLOW); LEUKOCYTE ESTERASE ,URINE NEGATIVE (NEGATIVE); NITRITE, URINE NEGATIVE (NEGATIVE); PROTEIN,URINE TRACE mg/dl (NEGATIVE); UGLUCOSE NEGATIVE (NEGATIVE)
[2020-08-13 12:26] LABS: BACTERIA,URINE None seen /HPF (None Seen); RBC,URINE NONE SEEN /HPF (0-2); SQUAMOUS EPITHELIAL CELL,UR Few /HPF (None Seen); WBC,URINE 0-2 /HPF (0-3)
--- NOTE | 2020-08-13 12:29 | NUR ---
CALLED GI CONSULT AND LVM
--- NOTE | 2020-08-13 12:37 | NUR ---
called house sup for tele bed
--- NOTE | 2020-08-13 13:36 | NUR ---
PATIENT IS RESTING, NO DISTRESS NOTED. VSS.
[2020-08-13] MEDS ORDERED: Z GUARD REMEDY 2 OZ OINT TP PRN (14:00)
[2020-08-13] MEDS ORDERED: MAG HYDROX/AL HYDROX/SIMETH 30 ML UDC PO PRN (14:00)
[2020-08-13] MEDS ORDERED: ACETAMINOPHEN 325 MG TABLET PO PRN (14:00)
[2020-08-13] MEDS ORDERED: ONDANSETRON HCL/PF 4 MG/2 ML VIAL IVP PRN (14:00)
[2020-08-13] MEDS ORDERED: HYDROCODONE/APAP 5/325MG TABLET PO PRN (14:00)
[2020-08-13] MEDS ORDERED: *INSULIN REGULAR(HUMULIN R)HUM 100 UNIT/ML VIAL SQ PRN (14:00)
[2020-08-13] MEDS ORDERED: DEXTROSE 50%-WATER 50 ML DISP.SYRIN IV PRN (14:00)
[2020-08-13] MEDS ORDERED: MAGNESIUM HYDROXIDE 30 ML UDC PO PRN (14:00)
--- NOTE | 2020-08-13 15:16 | NUR ---
BED 309-1
--- NOTE | 2020-08-13 15:22 | NUR ---
REPORT GIVEN TO JOSE MANUEL CORTEZ FOR JAY.
[2020-08-13 15:37] LABS: MAGNESIUM 2.4 mg/dL (1.8-2.4)
--- NOTE | 2020-08-13 15:59 | NUR ---
patient transferred to room 309-1 via acls protocol. No distress noted. Needs attended.
--- NOTE | 2020-08-13 16:00 | NUR ---
PATIENT ADMITTED FROM ER WITH NYA, ADMIT DX IS HYPOTHERMIA, AO X4, ABLE TO RESPONDS ALL STIMULI. DENIES PAIN OR DISTRESS. RESPIRATORY EVEN AND UNLABORED. PATIENT HAS [employer] $458.00 REFUSED PUT SECURITY BOX.
[2020-08-13] MEDS: APIXABAN 5 MG TABLET PO SCH (17:20)
[2020-08-13] MEDS: AMIODARONE HCL 200 MG TABLET PO SCH (17:21)
--- NOTE | 2020-08-13 17:30 | NUR ---
PATIENT NOTICED DECREASE BLOOD SUGAR WHEN HE STARTED EATING DINNER, RECHECKED BS AFTER FINISHED MEAL WAS 112MG/DL. WILL CONTINUE TO MONITOR.
[2020-08-13] MEDS: METRONIDAZOLE 500MG/ NS 100ML 500 MG in PREMIX 1 EA IV SCH (17:49)
[2020-08-13 18:00] VITALS: BP 109/75
[2020-08-13] MEDS: BLOOD SUGAR DIAGNOSTIC 1 EACH STRIP VI SCH ×2 (18:02→21:50)
--- NOTE | 2020-08-13 18:27 | NUR ---
RN CLOSING NOTE PATIENT RESTING IN BED, REMAINS AO X 4, DENIES DISTRESS OR DISCOMFORT. SKIN IS WARM TOUCH, KEEP CLEAN/DRY INTACT IV SITE, NO S/S OF ADVERSE REACTION OBSERVED FROM ABX IV. RESPIRATORY EVEN AND UNLABORED IN ROOM AIR. KEPT ELEVATED HOB FOR ENSURE AIRWAY, ALSO LOWEST BED POSITION FOR SAFETY. CALL LIGHT WITHIN REACH, WILL ENDORSE CRISIS SPECIALIST
[2020-08-13 20:00] VITALS: BP 108/75
[2020-08-13] MEDS: ATORVASTATIN 40 MG TABLET PO SCH (21:50)
[2020-08-14] VITALS: BP 105/66
[2020-08-14] MEDS: METRONIDAZOLE 500MG/ NS 100ML 500 MG in PREMIX 1 EA IV SCH ×5 (00:51→23:02)
[2020-08-14 04:00] VITALS: BP 80/48
[2020-08-14 05:25] VITALS: BP 102/68
[2020-08-14] MEDS: BLOOD SUGAR DIAGNOSTIC 1 EACH STRIP VI SCH ×4 (06:33→22:03)
[2020-08-14] MEDS: INSULIN REGULAR, HUMAN 100 UNIT/ML 3 ML VIAL SQ PRN ×2 (06:33→12:25)
--- NOTE | 2020-08-14 06:53 | NUR ---
ALERT/ORIENTED X4, ROOM AIR, DENIES PAIN AT THIS TIME, OLIGURIC, USES URINAL, SURENDRA COLORED URINE, AFEBRILE, VSS, FLAGYL, ROCEPHIN, ACCUCHECK, MONITOR BG CLOSELY, OFFER SNACKS IN BETWEEN MEALS, TENDS TO HAVE LOW BG, FALL PRECAUTION, AM LABS. HD TODAY.
[2020-08-14 06:56] LABS: BASOPHILS % (AUTO) 0.5 % (0.0-2.0); EOSINOPHILS % (AUTO) 5.8 % (0.0-6.0); HEMATOCRIT 36 % (39-51); HEMOGLOBIN 11.7 g/dL (13.5-17.5); LYMPHOCYTES # (AUTO) 0.5 /CMM (0.8-4.8); MEAN CORPUSCULAR HGB CONC 32 g/dl (31.0-36.0); MEAN CORPUSCULAR VOLUME 86 fL (80-96); MONOCYTES # (AUTO) 0.6 /CMM (0.1-1.30); MONOCYTES % (AUTO) 9.6 % (2.0-12.0); NEUTROPHILS # (AUTO) 4.4 /CMM (1.8-8.9); NEUTROPHILS % (AUTO) 75.1 % (43.0-81.0); PLATELET COUNT (AUTO) 133 /CMM (150-450); RED BLOOD CELL COUNT(AUTO) 4.23 MIL/uL (4.5-6.0); WHITE BLOOD COUNT (AUTO) 5.9 K/uL (4.3-11.0)
[2020-08-14 07:06] LABS: ALBUMIN 3.2 g/dL (3.4-5.0); BILIRUBIN,DIRECT 0.6 mg/dL (0.0-0.2); BILIRUBIN,TOTAL 1.5 mg/dL (0.2-1.0); CALCIUM, SERUM 9.3 mg/dL (8.5-10.1); CREATININE 3.1 mg/dL (0.6-1.3); MAGNESIUM 2.2 mg/dL (1.8-2.4); PHOSPHORUS 3.9 mg/dL (2.5-4.9); POTASSIUM 4.8 mmol/L (3.5-5.1); TOTAL PROTEIN, SERUM 7.7 g/dL (6.4-8.2)
--- NOTE | 2020-08-14 07:40 | NUR ---
TELE/RN OPENING NOTES RECEIVED PATIENT ON BED, AWAKE ALERT AND ORIENTED X4. PATIENT IS ON ROOM AIR. PATIENT IN NO APPARENT RESPIRATORY DISTRESS NOTED. NO COMPLAINED OF PAIN NOTED AT THIS TIME. TELE MONITOR SINUS RHYTHM WITH 1ST DEGREE 69 BPM. WILL CONTINUE TO MONITOR.
[2020-08-14 08:00] VITALS: BP 105/70
[2020-08-14] MEDS: AMIODARONE HCL 200 MG TABLET PO SCH ×2 (09:00→16:37)
[2020-08-14] MEDS: LEVOTHYROXINE SODIUM 50 MCG TABLET PO SCH (09:17)
[2020-08-14] MEDS: ASPIRIN EC 81 MG TABLET.DR PO SCH (09:17)
[2020-08-14] MEDS: PANTOPRAZOLE 40 MG TABLET.DR PO SCH (09:17)
[2020-08-14] MEDS: APIXABAN 5 MG TABLET PO SCH ×2 (09:20→16:40)
--- NOTE | 2020-08-14 09:21 | NUR ---
TELE/RN NOTES BP105/70 P 62 AMLODIPINE 200MG PO 1 TAB NOT GIVEN AND PATIENT HAVE HEMODIALYSIS TODAY. WILL CONTINUE TO MONITOR.
[2020-08-14] MEDS ORDERED: CEFTRIAXONE 1 G in IV D5W 50 ML IV SCH (14:00)
[2020-08-14 16:00] VITALS: BP 95/64
--- NOTE | 2020-08-14 18:40 | NUR ---
TELE/RN CLOSING NOTES PATIENT IS ON BED, AWAKE ALERT AND ORIENTED X4. PATIENT IS ON ROOM AIR SATURATION 98%. PATIENT IN NO APPARENT RESPIRATORY DISTRESS NOTED. NO COMPLAINED OF PAIN NOTED AT THIS TIME. TELE MONITOR SINUS RHYTHM 68 BPM. IV ACCESS AT LEFT AC # 18 G AND LEFT HAND # 20 PATENT AND INTACT. SEEN AND EXAMINED BY MD WITH ORDERS MADE AND CARRIED OUT. ALL DUE MEDICATIONS WAS GIVEN. ALL NEEDS WAS ATTENDED. WILL CONTINUE TO MONITOR.
--- NOTE | 2020-08-14 19:40 | NUR ---
COMMODITY SUPERVISOR OPENING NOTES PATIENT WAS SEEN AWAKE LYING ON HIS BED. PATIENT IS ALERT AND ORIENTED X4. PATIENT'S ABLE TO MAKE HIS NEEDS KNOWN. PATIENT'S ON ROOM AIR WITH NO RESPIRATORY DISTRESS NOTED. PATIENT IS ON A TELE MONITOR AND IN NO CARDIAC DISTRESS CURRENTLY. PATIENT HAS IV ACCESSES ON HIS LEFT AC GAUGE#18 AND LEFT HAND GAUGE #20 WHICH ARE INTACT, PATENT, AND FLUSHING WELL. SAFETY MEASURES KEPT IN PLACE: BED LOCKED, BED ALARM ON, SIDE RAILS UPX2, AND CALL LIGHT WITHIN REACH OF THE PATIENT. WILL CONTINUE TO MONITOR.
[2020-08-14 20:58] VITALS: BP 115/74
[2020-08-14] MEDS: ATORVASTATIN 40 MG TABLET PO SCH (21:22)
--- NOTE | 2020-08-14 21:58 | NUR ---
BOILER HOUSE INSPECTOR NOTES Patient's blood sugar was 111 mg/dL. No insulin was given. Will continue to monitor the patient.
--- NOTE | 2020-08-14 22:43 | NUR ---
REPAIR ARMATURE WINDER HELPER NOTES PATIENT HAD DIALYSIS DURING THE SHIFT. DIALYSIS ENDED AND PATIENT IS NOT IN ANY DISTRESS AND IS STABLE. OUTPUT=2 LITERS. WILL CONTINUE TO MONITOR THE PATIENT.
[2020-08-15 00:29] VITALS: BP 103/63
[2020-08-15 04:35] VITALS: BP 103/60
[2020-08-15] MEDS: METRONIDAZOLE 500MG/ NS 100ML 500 MG in PREMIX 1 EA IV SCH (06:52)
--- NOTE | 2020-08-15 07:10 | NUR ---
REPORTING PROCESS CONSULTANT NOTES Patient's blood sugar=94. No insulin was given. Will continue to monitor the patient.
[2020-08-15] MEDS: BLOOD SUGAR DIAGNOSTIC 1 EACH STRIP VI SCH (07:15)
--- NOTE | 2020-08-15 07:16 | NUR ---
COMMODITY SUPERVISOR OPENING NOTES PATIENT WAS SEEN AWAKE LYING ON HIS BED. PATIENT IS ALERT AND ORIENTED X4. PATIENT'S ABLE TO MAKE HIS NEEDS KNOWN. PATIENT'S ON ROOM AIR WITH NO RESPIRATORY DISTRESS NOTED. PATIENT IS ON A TELE MONITOR AND IN NO CARDIAC DISTRESS CURRENTLY. PATIENT HAS IV ACCESSES ON HIS LEFT AC GAUGE#18 AND LEFT HAND GAUGE #20 WHICH ARE INTACT, PATENT, AND FLUSHING WELL. SAFETY MEASURES KEPT IN PLACE: BED LOCKED, BED ALARM ON, SIDE RAILS UPX2, AND CALL LIGHT WITHIN REACH AND ANSWERED PROMPTLY
[2020-08-15 08:00] VITALS: BP 113/71
--- NOTE | 2020-08-15 08:00 | NUR ---
SEC REPORTING CONSULTANT CLOSING NOTES PATIENT WAS SEEN AWAKE LYING ON HIS BED. PATIENT IS ALERT AND ORIENTED X4. PATIENT'S ABLE TO MAKE HIS NEEDS KNOWN. PATIENT'S ON ROOM AIR WITH NO RESPIRATORY DISTRESS NOTED. PATIENT HAS IV ACCESSES ON HIS LEFT AC GAUGE#18 AND LEFT HAND GAUGE #20 WHICH ARE INTACT, PATENT, AND FLUSHING WELL. SAFETY MEASURES KEPT IN PLACE: BED LOCKED, BED ALARM ON, SIDE RAILS UPX2, AND CALL LIGHT WITHIN REACH. ENDORSED CARE TO DAY SHIFT NURSE.
[2020-08-15] MEDS: LEVOTHYROXINE SODIUM 50 MCG TABLET PO SCH (09:16)
[2020-08-15] MEDS: APIXABAN 5 MG TABLET PO SCH (09:16)
[2020-08-15] MEDS: ASPIRIN EC 81 MG TABLET.DR PO SCH (09:16)
[2020-08-15] MEDS: PANTOPRAZOLE 40 MG TABLET.DR PO SCH (09:16)
[2020-08-15 09:17] VITALS: BP 113/71
[2020-08-15] MEDS: AMIODARONE HCL 200 MG TABLET PO SCH (09:17)
--- NOTE | 2020-08-15 12:34 | NUR ---
BUTTONHOLE MAKER HANDRESTORATIVE CARE TECHNICIAN NOTE PT LEFT HOSPITAL AT 1230 ON WHEELCHAIR DOWNSTAIRS TO ENTRANCE, PICKED UP BY PRIVATE CAR. TELEMETRY LEADS REMOVED, BOTH IV LINE ACCESSES SAFELY REMOVED AND BANDAGED. ALL BELONGINGS ACCOUNTED FOR AND SIGNED BELONGING LIST ALONG WITH PATIENT. ALL FORMS GIVEN TO PATIENT AND INSTRUCTED TO RETURN TO ER IF ANY EMERGENCIES OCCUR.
== END 2020-08-15 12:30 | disposition home or self-care (01) | DRG 420 ==
LOC: ER 08:26 → TELE 15:27
PROVIDERS: ADMIT Internal Medicine; ATTEND Internal Medicine
PROC: 5A1D70Z Performance of Urinary Filtration, Intermittent, Less than 6 Hours Per Day (ICD-10-PCS; principal; 2020-08-14)
DX: E11.649 Type 2 diabetes mellitus with hypoglycemia without coma (principal); G93.41 Metabolic encephalopathy; T68.XXXA Hypothermia, initial encounter; K81.9 Cholecystitis, unspecified; I12.0 Hypertensive chronic kidney disease with stage 5 chronic kidney disease or end stage renal disease; K83.8 Other specified diseases of biliary tract; E11.22 Type 2 diabetes mellitus with diabetic chronic kidney disease; I25.10 Atherosclerotic heart disease of native coronary artery without angina pectoris; N18.6 End stage renal disease; Z99.2 Dependence on renal dialysis; E78.5 Hyperlipidemia, unspecified; K21.9 Gastro-esophageal reflux disease without esophagitis; K74.60 Unspecified cirrhosis of liver; Z79.899 Other long term (current) drug therapy; Z86.73 Personal history of transient ischemic attack (TIA), and cerebral infarction without residual deficits; Z79.84 Long term (current) use of oral hypoglycemic drugs; Z79.82 Long term (current) use of aspirin; F10.11 Alcohol abuse, in remission; Y90.9 Presence of alcohol in blood, level not specified; Z79.01 Long term (current) use of anticoagulants; Z79.890 Hormone replacement therapy
CPT/HCPCS: 36415; 71045-TC; 76705-TC; 80048-TC; 80076-TC; 81001; 82962-TC; 83735-TC; 84100-TC; 84484-TC; 85025-TC; 86705; 86706; 87081-TC; 87340; 90935-TC; A4216; C9803; G0378; J0696; J1815; J2405; J7040; J7050; J7060

== ENCOUNTER 2020-12-09 14:32 | Emergency (ER) | payer MEDICAID ==
[~2020-12-09] VITALS: Ht 175.3 cm; Wt 85.7 kg
[~2020-12-09 14:32] MED LIST changes: +APIX5TAB PO; +FURO40TA5 PO; +LEVO50TA8 PO
[2020-12-09 14:37] VITALS: BP 100/63
--- NOTE | 2020-12-09 14:42 | NUR ---
Patient [id number], from home, c/o R wrist pain 07/02 ps. Patient alert and oriented x4. No respiratory distress noted. Respirations even and unlabored. Awaiting md modi.
--- NOTE | 2020-12-09 15:49 | NUR ---
Patient discharged to home in stable condition. Written and verbal after care instructions given. Patient verbalizes understanding of instruction.
== END 2020-12-09 15:25 | disposition home or self-care (01) ==
LOC: ER 14:35
DX: S50.11XA Contusion of right forearm, initial encounter (principal); I10 Essential (primary) hypertension; E78.5 Hyperlipidemia, unspecified; K21.9 Gastro-esophageal reflux disease without esophagitis; E11.9 Type 2 diabetes mellitus without complications; Z95.0 Presence of cardiac pacemaker; Z98.890 Other specified postprocedural states; Z60.2 Problems related to living alone; Z79.899 Other long term (current) drug therapy; Z79.82 Long term (current) use of aspirin; X58.XXXA Exposure to other specified factors, initial encounter; Y93.89 Activity, other specified; Y92.89 Other specified places as the place of occurrence of the external cause; Y99.8 Other external cause status
CPT/HCPCS: 73090-TC

== ENCOUNTER 2021-03-13 10:21 | Inpatient (IN) | payer MEDICAID ==
[~2021-03-13] VITALS: Ht 175.3 cm; Wt 88.0 kg
--- NOTE | 2021-03-13 10:31 | NUR ---
TO ER BED 7, [id number] FROM [facility] C/O ABDOMINAL PAIN [id number], NAUSEA, DIALYSIS TTHS, AAOX3, BREATHING EVEN AND NON LABORED, CONNECTED TO MONITOR
--- NOTE | 2021-03-13 10:32 | NUR ---
Note undone in EDM - 03/13/21 at 1549 by ARIANNE [id number] C/O ABDOMINAL PAIN X 2 WEEKS, NAUSEA, DIALYSIS T-TH-S. THE PATIENT IS ALERT AND ORIENTED X4. IN ROOM AIR AND DENIES SOB. RESPIRATION REGLAR AND UNLABORED. THE PATIENT IS NOTED TO HAVE RIGHT UPPER ARM HD CATH COVERED WITH CLEAN, DRY DRESSING. THE PATIENT IS ATTACHED TO THE MONITOR. WARM BLANKET PROVIDED FOR COMFORT. WILL CONTINUE TO MONITOR THE PATIENT.
--- NOTE | 2021-03-13 10:33 | NUR ---
DR CROSS AT THE BEDSIDE
[2021-03-13 10:55] LABS: BASOPHILS # (AUTO) 0.1 K/uL (0.0-0.2); BASOPHILS % (AUTO) 1.1 % (0.0-2.0); EOSINOPHILS % (AUTO) 5.1 % (0.0-6.0); HEMATOCRIT 40 % (39-51); HEMOGLOBIN 13.1 g/dL (13.5-17.5); LYMPHOCYTES # (AUTO) 0.9 K/uL (0.8-4.8); LYMPHOCYTES % (AUTO) 14.3 % (20.0-44.0); MEAN CORPUSCULAR HGB CONC 33 g/dl (31.0-36.0); MEAN CORPUSCULAR VOLUME 96 fL (80-96); MONOCYTES # (AUTO) 0.6 K/uL (0.1-1.30); MONOCYTES % (AUTO) 9.7 % (2.0-12.0); NEUTROPHILS # (AUTO) 4.3 K/uL (1.8-8.9); NEUTROPHILS % (AUTO) 69.8 % (43.0-81.0); PLATELET COUNT (AUTO) 139 K/uL (150-450); RED BLOOD CELL COUNT(AUTO) 4.17 MIL/uL (4.5-6.0); WHITE BLOOD COUNT (AUTO) 6.2 K/uL (4.3-11.0)
--- NOTE | 2021-03-13 11:14 | NUR ---
PT TAKEN TO CT
--- NOTE | 2021-03-13 11:21 | NUR ---
THE PATIENT IS BACK FROM CT
--- NOTE | 2021-03-13 11:21 | NUR ---
Kevin randall in [facility] - 03/13/21 at 1121 by YA PT BACK FROM CT
[2021-03-13 11:59] LABS: CALCIUM, SERUM 9.7 mg/dL (8.5-10.1); CARBON DIOXIDE 23 mmol/L (21-32); CHLORIDE 99 mmol/L (98-107); CREATININE 4.2 mg/dL (0.6-1.3); GLUCOSE 199 mg/dL (74-106); POTASSIUM 4.9 mmol/L (3.5-5.1); SODIUM SERUM 133 mmol/L (136-145); UREA NITROGEN, BLOOD 65 mg/dL (7-18)
[2021-03-13] MEDS ORDERED: ONDANSETRON HCL/PF 4 MG/2 ML VIAL ONE (11:59)
[2021-03-13] MEDS ORDERED: ONDANSETRON HCL/PF 4 MG/2 ML VIAL IV ONE (12:00)
[2021-03-13 12:20] LABS: ALANINE AMINOTRANSFERASE 34 U/L (12-78); ALBUMIN 3.5 g/dL (3.4-5.0); ALKALINE PHOSPHATASE 139 U/L (46-116); ASPARTATE AMINOTRANSFERASE 24 U/L (15-37); BILIRUBIN,DIRECT 0.3 mg/dL (0.0-0.2); BILIRUBIN,TOTAL 1.5 mg/dL (0.2-1.0); LIPASE 174 U/L (73-393); TOTAL PROTEIN, SERUM 8.1 g/dL (6.4-8.2)
[2021-03-13] MEDS ORDERED: CHOL100062 PO (12:40)
[2021-03-13] MEDS ORDERED: METO25TA3 PO (12:40)
[2021-03-13] MEDS ORDERED: ACET325T53 PO (12:40)
[2021-03-13] MEDS ORDERED: ATOR40TA PO (12:40)
--- NOTE | 2021-03-13 12:41 | NUR ---
COVID SWAB COLLECTED VIA BLOCKER AND SEWER AND SENT TO LAB
[2021-03-13] MEDS ORDERED: GLIP5TAB13 PO (12:43)
--- NOTE | 2021-03-13 13:28 | NUR ---
URINE COLLECTED AND SENT TO LAB
[2021-03-13] MEDS ORDERED: APIXABAN 5 MG TABLET PO SCH (13:30)
[2021-03-13] MEDS ORDERED: MAGNESIUM HYDROXIDE 30 ML UDC PO PRN (13:30)
[2021-03-13] MEDS: ASPIRIN EC 81 MG TABLET.DR PO SCH (13:30)
[2021-03-13] MEDS ORDERED: ZOLPIDEM TARTRATE 5 MG TABLET PO PRN (13:30)
[2021-03-13] MEDS ORDERED: ACETAMINOPHEN 325 MG TABLET PO PRN (13:30)
[2021-03-13] MEDS ORDERED: ONDANSETRON HCL/PF 4 MG/2 ML VIAL IVP PRN (13:30)
[2021-03-13] MEDS: ATORVASTATIN 40 MG TABLET PO SCH (13:30)
[2021-03-13] MEDS ORDERED: Z GUARD REMEDY 2 OZ OINT TP PRN (13:30)
--- NOTE | 2021-03-13 13:59 | NUR ---
ROOM 117-1
--- NOTE | 2021-03-13 14:20 | NUR ---
Patient admitted from ER, reported by Alexandra CORTEZ. admitting Dx: ABD pain, but denies ABD pain at this time. ABd is soft and no distension observed. Respiratory cielo and unlabored on room air. Call light within reach, will continue to monitor.
--- NOTE | 2021-03-13 14:49 | NUR ---
REPORT GIVEN TO NURSE KRUEGER FOR JAY
--- NOTE | 2021-03-13 14:58 | NUR ---
THE PATIENT IS ALERT AND ORIENTED X4. THE PATIENT STATES THAT HE LIVES HOME WITH HIS FAMILY.
--- NOTE | 2021-03-13 15:34 | NUR ---
BED 309
--- NOTE | 2021-03-13 15:47 | NUR ---
REPORT GIVEN TO NURSE RICHARD FOR BED 309
[2021-03-13 16:00] VITALS: BP 97/61
--- NOTE | 2021-03-13 16:07 | NUR ---
PT TRANSFERRED TO 3W VIA ACLS PROTOCOL. VSS. ALL BELONGINGS WITH PT.
[2021-03-13] MEDS: glipiZIDE 5 MG TABLET PO SCH (17:57)
[2021-03-13] MEDS: APIXABAN 5 MG TABLET PO SCH (18:31)
--- NOTE | 2021-03-13 18:37 | NUR ---
RN Closing Note Patient in bed, resting, remains AO x 4. Respiratory even and unabashed on room air. Skin is warm to touch, keep clean/dry, intact fistula on right upper and IV site on right hand. Patient denies ABD pain or discomfort. Ectocardiac done for while ago, noticed EF 30 %, MD made aware, no new order at this time. Kept elevated HOB for airway and lower position of the bed for safety. Call light within reach, all needs met. will endorse manager lab.
--- NOTE | 2021-03-13 19:20 | NUR ---
TELE/RN OPENING NOTES PT AWAKE IN BED, A/OX4, DENIES PAIN AT THIS TIME. RESPIRATIONS EVEN/UNLABORED. HE DENIES SOB. IV SITE: L-FA #18G INTACT/PATENT/FLUSHES WELL. ON TELE MONITOR, READING PACING, HR 59. PT IN NO ACUTE DISTRESS. SAFETY MEASURES IN PLACE, BED IN LOWEST LOCKED POSITION, S/R UPX2, CALL LIGHT WITHIN REACH. WILL CONT TO MONITOR.
[2021-03-13 20:00] VITALS: BP 99/60
[2021-03-14] VITALS: BP 103/64
[2021-03-14 04:00] VITALS: BP 101/60
--- NOTE | 2021-03-14 06:55 | NUR ---
TELE/RN CLOSING NOTE PT RESTING IN BED, EASILY AROUSABLE TO STIMULI. DENIES ANY PAIN AT THIS TIME. RESPIRATIONS EVEN AND UNLABORED. IV SITE ON L-WRIST #22G INTACT/PATENT/FLUSHES WELL. WITH PERMCATH ON RCW IN PLACE, WITH DRESSING C/D/I. TELE MONITOR READING V-PACING, HR 60. PT SLEPT WELL DURING THE NIGHT. NO ACUTE DISTRESS NOTED. SAFETY MEASURES MAINTAINED.
[2021-03-14 06:56] LABS: BASOPHILS # (AUTO) 0.1 K/uL (0.0-0.2); BASOPHILS % (AUTO) 1.1 % (0.0-2.0); EOSINOPHILS % (AUTO) 4.2 % (0.0-6.0); HEMATOCRIT 37 % (39-51); HEMOGLOBIN 12.4 g/dL (13.5-17.5); LYMPHOCYTES # (AUTO) 0.8 K/uL (0.8-4.8); LYMPHOCYTES % (AUTO) 12.8 % (20.0-44.0); MEAN CORPUSCULAR HGB CONC 33 g/dl (31.0-36.0); MEAN CORPUSCULAR VOLUME 94 fL (80-96); MONOCYTES # (AUTO) 0.6 K/uL (0.1-1.30); MONOCYTES % (AUTO) 9.9 % (2.0-12.0); NEUTROPHILS # (AUTO) 4.3 K/uL (1.8-8.9); PLATELET COUNT (AUTO) 138 K/uL (150-450); RED BLOOD CELL COUNT(AUTO) 3.96 MIL/uL (4.5-6.0)
[2021-03-14 07:29] LABS: CALCIUM, SERUM 9.3 mg/dL (8.5-10.1); CREATININE 4.6 mg/dL (0.6-1.3); MAGNESIUM 2.2 mg/dL (1.8-2.4); POTASSIUM 5.4 mmol/L (3.5-5.1)
--- NOTE | 2021-03-14 07:43 | NUR ---
RN OPENING NOTES Patient seen comfortably lying in bed, no apparent distress noted, respirations even and unlabored, no SOB, denies any pain or discomfort at this time, no grimacing. Call light left within reach, safety precautions in place, brakes locked, side rails up X 2, will monitor closely for any changes.
[2021-03-14 08:00] VITALS: BP 110/68
[2021-03-14] MEDS ORDERED: CHOLECALCIFEROL 1,000 UNIT TABLET (VIT D3) PO SCH (09:00)
[2021-03-14] MEDS: ASPIRIN EC 81 MG TABLET.DR PO SCH (09:04)
[2021-03-14] MEDS: ATORVASTATIN 40 MG TABLET PO SCH (09:04)
[2021-03-14] MEDS: glipiZIDE 5 MG TABLET PO SCH ×2 (09:04→16:23)
[2021-03-14] MEDS: APIXABAN 5 MG TABLET PO SCH ×2 (09:06→16:24)
--- NOTE | 2021-03-14 14:00 | NUR ---
Patient had hemodialysis today with output of 1000ml, patient tolerated hemodialysis session, no s/s of fluid overload, remained afebrile, no chills. Dialysis site patent, intact, covered with dry dressings, no bleeding noted, no s/s of infection, will monitor closely for any changes.
--- NOTE | 2021-03-14 17:55 | NUR ---
Patient seen comfortably lying in bed, denies any pain or discomfort at this time, no dizziness, no palpitations, no apparent distress noted, no nausea, no vomiting, no grimacing when abdomen palpated, abdominal bowel sound present in all quadrants. Patient stated that he wants to leave the hospital and go home and is very worried about his dog, explained risks and benefits to patient thrice, however patient still prefers to leave, respected patient's wishes. Patient alert, oriented X 4, able to make needs known and can follow commands. Patient signed AMA form and inventory list, all belongings taken by patient, exit care paperwork handed to patient. Instructed patient to follow up with her primary MD and to go in ER in case of emergency or call 911, patient verbalized understanding. Skin warm to touch, no pallor or cyanosis noted. Peripheral IV line on right forearm and patients identification wristband was removed before patient left unit. Surgical mask given to patient, verbalized gratitude. MD, charge nurse and nursing supervisor pipe manufacture made aware of the situation. RN assisted patient to the hospital parking lot, marito picked up patient, and left hospital at 1800pm, patient left in stable condition.
== END 2021-03-14 18:00 | disposition left against medical advice (07) | DRG 194 ==
LOC: ER 10:25 → TELE1 14:28 → TELE 15:42 → MED 03-14 12:04
PROVIDERS: ADMIT Nurse Practitioner Acute Care; ATTEND Internal Medicine
PROC: 5A1D70Z Performance of Urinary Filtration, Intermittent, Less than 6 Hours Per Day (ICD-10-PCS; principal; 2021-03-14)
DX: I13.2 Hypertensive heart and chronic kidney disease with heart failure and with stage 5 chronic kidney disease, or end stage renal disease (principal); N18.6 End stage renal disease; E11.22 Type 2 diabetes mellitus with diabetic chronic kidney disease; D63.8 Anemia in other chronic diseases classified elsewhere; E87.1 Hypo-osmolality and hyponatremia; K74.60 Unspecified cirrhosis of liver; I25.10 Atherosclerotic heart disease of native coronary artery without angina pectoris; Z20.822 Contact with and (suspected) exposure to COVID-19; K21.9 Gastro-esophageal reflux disease without esophagitis; Z79.899 Other long term (current) drug therapy; Z95.810 Presence of automatic (implantable) cardiac defibrillator; Z87.891 Personal history of nicotine dependence; Z99.2 Dependence on renal dialysis; Z79.890 Hormone replacement therapy; Z86.73 Personal history of transient ischemic attack (TIA), and cerebral infarction without residual deficits; I50.22 Chronic systolic (congestive) heart failure; E78.5 Hyperlipidemia, unspecified; Z79.01 Long term (current) use of anticoagulants; Z79.82 Long term (current) use of aspirin; R74.01 Elevation of levels of liver transaminase levels
CPT/HCPCS: 36415; 70450-TC; 71045-TC; 80048-TC; 80061-TC; 80076-TC; 83690-TC; 83735-TC; 84100-TC; 84484-TC; 85025-TC; 87081-TC; 90935-TC; 93307-TC; G0378; J2405; J7030

== ENCOUNTER 2021-05-25 23:44 | Inpatient (IN) | payer MEDICAID ==
[~2021-05-25] VITALS: Ht 175.3 cm; Wt 90.7 kg
[~2021-05-25 23:44] MED LIST changes: +ACET325T53 PO; +ATOR40TA PO; -ATOR80TA PO; +CHOL100062 PO; +GLIP5TAB13 PO; -HYDR-4077 PO; -LEVO50TA8 PO; +METO25TA3 PO; -METO25TA4 PO; -PANT40TA49 PO
--- NOTE | 2021-05-26 00:05 | NUR ---
TO ER BED 10. BIBRA 39 FROM HOME C/O SUDDEN "SHOCK" FEELING TO CHEST RADIATING TO HEAD AT 2300. PT WAS AT REST WHEN THIS OCCURED AND DENIES ANY CURRENT CHEST PAIN, SOB, N/V. PT STATES HE HAS A PACEMAKER. RR EVEN AND UNLABORED NOTED. CONNECTED TO HEART MONITOR. AWAITING MD CHAN.
--- NOTE | 2021-05-26 00:16 | NUR ---
TYPE MAPPER AT PT'S BEDSIDE
--- NOTE | 2021-05-26 00:19 | NUR ---
COVID ANTIGEN SWAB COLLECTED AND SENT TO LAB
[2021-05-26 00:33] LABS: BASOPHILS % (AUTO) 0.9 % (0.0-2.0); EOSINOPHILS % (AUTO) 3.4 % (0.0-6.0); HEMATOCRIT 42 % (39-51); HEMOGLOBIN 13.3 g/dL (13.5-17.5); LYMPHOCYTES # (AUTO) 0.4 K/uL (0.8-4.8); LYMPHOCYTES % (AUTO) 8.9 % (20.0-44.0); MEAN CORPUSCULAR HGB CONC 32 g/dl (31.0-36.0); MEAN CORPUSCULAR VOLUME 92 fL (80-96); MONOCYTES # (AUTO) 0.6 K/uL (0.1-1.30); MONOCYTES % (AUTO) 13.5 % (2.0-12.0); NEUTROPHILS # (AUTO) 3.3 K/uL (1.8-8.9); NEUTROPHILS % (AUTO) 73.3 % (43.0-81.0); PLATELET COUNT (AUTO) 130 K/uL (150-450); RED BLOOD CELL COUNT(AUTO) 4.54 MIL/uL (4.5-6.0); WHITE BLOOD COUNT (AUTO) 4.5 K/uL (4.3-11.0)
--- NOTE | 2021-05-26 00:36 | NUR ---
XRAY AT BEDSIDE
[2021-05-26 00:46] LABS: CARBON DIOXIDE 27 mmol/L (21-32); CHLORIDE 99 mmol/L (98-107); CREATININE 3.2 mg/dL (0.6-1.3); GLUCOSE 283 mg/dL (74-106); SODIUM SERUM 131 mmol/L (136-145); UREA NITROGEN, BLOOD 35 mg/dL (7-18)
[2021-05-26 00:59] LABS: ALANINE AMINOTRANSFERASE 51 U/L (12-78); ALKALINE PHOSPHATASE 197 U/L (46-116); ASPARTATE AMINOTRANSFERASE 30 U/L (15-37); BILIRUBIN,DIRECT 0.7 mg/dL (0.0-0.2); BILIRUBIN,TOTAL 1.6 mg/dL (0.2-1.0); TOTAL PROTEIN, SERUM 7.6 g/dL (6.4-8.2)
--- NOTE | 2021-05-26 02:44 | NUR ---
CALLED [facility] TO HAVE IMAGES READ
[2021-05-26] MEDS ORDERED: NITROGLYCERIN 0.4 MG/TAB BOTTLE SL PRN (03:00)
[2021-05-26] MEDS ORDERED: DOCUSATE SODIUM 100 MG CAPSULE PO PRN (03:00)
[2021-05-26] MEDS ORDERED: ACETAMINOPHEN 325 MG TABLET PO PRN ×2 (03:00)
[2021-05-26] MEDS ORDERED: DEXTROSE 50%-WATER 50 ML DISP.SYRIN IV PRN (03:00)
[2021-05-26] MEDS ORDERED: ONDANSETRON HCL/PF 4 MG/2 ML VIAL IVP PRN (03:00)
[2021-05-26] MEDS ORDERED: MAG HYDROX/AL HYDROX/SIMETH 30 ML UDC PO PRN (03:00)
[2021-05-26] MEDS ORDERED: MORPHINE SULFATE INJ 2 MG/ML DISP.SYRIN IV PRN (03:00)
--- NOTE | 2021-05-26 03:46 | NUR ---
GAVE REPORT TO DANA LAYTON FOR JAY
[2021-05-26 04:00] VITALS: BP 108/76
--- NOTE | 2021-05-26 04:16 | NUR ---
RN NOTE RECEIVED PATIENT FROM ER VIA GURNEY ACCOMPANIED BY 2 ER STAFF, AMBULATED TO BED WITH CANE. PT IS AO X 4, VIETNAMESE SPEAKING, UNDERSTANDS SIMPLE FRISIAN BUT PATRICA SHAFER HELPED WITH TRANSLATION, IN NO ACUTE DISTRESS, RESPIRATIONS EVEN AND UNLABORED, SATURATION AT 99% ON ROOM AIR. COMPREHENSIVE PHYSICAL ASSESSMENT AND PATIENT CARE DONE. SKIN CHECK DONE WITH IAN CORTEZ, NO SKIN ISSUES NOTED. NOTED IV LINE AT LAC 18G, PATENT AND FLUSHING WELL, NO S/S OF INFECTION OR INFILTRATION NOTED. NOTED PACEMAKER/AICD AT L UPPER CHEST, AND HD CATH AT R CHEST WALL. SAFETY MEASURES AND ISOLATION PRECAUTION IN PLACE, CALL LIGHT WITHIN REACH OF PATIENT, BED ON LOWEST POSITION, SIDE RAILS UP X 2. WILL CONTINUE MONITOR AND ASSESS THROUGHOUT THE SHIFT. WILL CARRY OUT MD ORDERS ACCORDINGLY. MARINE PLUMBER MADE AWARE.
--- NOTE | 2021-05-26 05:00 | NUR ---
RN NOTE TELEPHONE CALL FROM [facility] WANTED TO VERIFY ORDER PT HAS ELIQUIS 5 MG PO BID, AND HEPARIN 5000 UNITS SQ BID. PER DR GILL, KEEP ELIQUIS 5 MG AND DISCONTINUE HEPARIN 5000 UNITS. POTATO LOADER ELEAZAR MARVIN
[2021-05-26 06:59] LABS: ALBUMIN 2.9 g/dL (3.4-5.0); BILIRUBIN,TOTAL 1.5 mg/dL (0.2-1.0); CALCIUM, SERUM 9.3 mg/dL (8.5-10.1); CREATININE 3.1 mg/dL (0.6-1.3); MAGNESIUM 2.2 mg/dL (1.8-2.4); PHOSPHORUS 2.9 mg/dL (2.5-4.9); POTASSIUM 3.9 mmol/L (3.5-5.1); TOTAL PROTEIN, SERUM 7.4 g/dL (6.4-8.2)
[2021-05-26 07:15] LABS: BASOPHILS % (AUTO) 0.6 % (0.0-2.0); HEMATOCRIT 40 % (39-51); HEMOGLOBIN 13.1 g/dL (13.5-17.5); LYMPHOCYTES # (AUTO) 0.6 K/uL (0.8-4.8); LYMPHOCYTES % (AUTO) 11.9 % (20.0-44.0); MEAN CORPUSCULAR HGB CONC 33 g/dl (31.0-36.0); MEAN CORPUSCULAR VOLUME 91 fL (80-96); MONOCYTES # (AUTO) 0.8 K/uL (0.1-1.30); MONOCYTES % (AUTO) 15.9 % (2.0-12.0); NEUTROPHILS # (AUTO) 3.2 K/uL (1.8-8.9); NEUTROPHILS % (AUTO) 67.6 % (43.0-81.0); PLATELET COUNT (AUTO) 132 K/uL (150-450); RED BLOOD CELL COUNT(AUTO) 4.43 MIL/uL (4.5-6.0); WHITE BLOOD COUNT (AUTO) 4.8 K/uL (4.3-11.0)
[2021-05-26 07:23] LABS: THYROID STIMULATING HORMONE 9.923 uIU/mL (0.358-3.74)
--- NOTE | 2021-05-26 07:45 | NUR ---
RN OPENING NOTE PATIENT RECEIVED IN BED, SLEEPING. PATIENT ON ROOM AIR WITH NO SIGNS OF LABORED BREATHING. PATIENT SINUS RHYTHM IN THE HIGH 90S AT THIS TIME, CLOSELY MONITOR WITH TELE MONITOR ON. LEFT AC 18G SL IN PLACE AND RIGHT IJ HD CATH IN PLACE. BED LOCKED AND IN LOWEST POSITION, CALL LIGHT WITHIN REACH, 2 SIDE RAILS UP. WILL CONTINUE TO MONITOR.
[2021-05-26] MEDS: BLOOD SUGAR DIAGNOSTIC 1 EACH STRIP IN SCH ×4 (07:59→21:20)
[2021-05-26 08:00] VITALS: BP 101/67
[2021-05-26] MEDS: CHOLECALCIFEROL 1,000 UNIT TABLET (VIT D3) PO SCH (08:18)
[2021-05-26] MEDS: glipiZIDE 5 MG TABLET PO SCH ×2 (08:18→17:14)
[2021-05-26] MEDS: ASPIRIN EC 81 MG TABLET.DR PO SCH (08:18)
[2021-05-26] MEDS: FUROSEMIDE 40 MG TABLET PO SCH (08:18)
[2021-05-26] MEDS: ISOSORBIDE MONONITRATE (30MG) 30 MG TAB.SR.24H PO SCH (08:18)
[2021-05-26] MEDS: AMIODARONE HCL 200 MG TABLET PO SCH ×2 (08:19→17:14)
[2021-05-26] MEDS: APIXABAN 5 MG TABLET PO SCH ×2 (08:20→17:15)
[2021-05-26] MEDS: METOPROLOL SUCCINATE 25 MG TAB.SR.24H PO SCH (08:21)
[2021-05-26] MEDS ORDERED: HEPARIN SODIUM, PORCINE 5000 UNITS/1 ML VIAL IV SCH (09:00)
[2021-05-26 09:05] LABS: EOSINOPHILS % (MANUAL) 2 % (0-4); LYMPHOCYTES % (MANUAL) 16 % (16-48); MONOCYTES % (MANUAL) 15 % (0-11.0); NEUTROPHILS % (MANUAL) 67 (42-76)
[2021-05-26 12:00] VITALS: BP 98/73
[2021-05-26] MEDS: LEVOTHYROXINE SODIUM 25 MCG TABLET PO SCH (12:09)
[2021-05-26] MEDS: INSULIN REGULAR, HUMAN 100 UNIT/ML 3 ML VIAL SQ PRN ×2 (12:13→21:19)
[2021-05-26 16:00] VITALS: BP 95/67
--- NOTE | 2021-05-26 18:34 | NUR ---
RN CLOSING NOTE PATIENT REMAINS IN BED, AWAKE A&OX4. PATIENT ON ROOM AIR WITH NO SIGNS OF LABORED BREATHING. PATIENT SINUS RHYTHM IN THE 90S AT THIS TIME, CLOSELY MONITOR WITH TELE MONITOR ON. LEFT AC 18G SL IN PLACE AND RIGHT IJ HD CATH IN PLACE. ALL NEEDS ATTENDED DURING SHIFT. NO SIGNS OF ACUTE DISTRESS NOTED AT THIS TIME OR THROUGHOUT THE DAY. PATIENT DOES NOT REPORT ANY CHEST PAIN OR DISCOMFORT. BED LOCKED AND IN LOWEST POSITION, CALL LIGHT WITHIN REACH, 2 SIDE RAILS UP. WILL ENDORSE TO TAPE MACHINE TAILER NURSE.
--- NOTE | 2021-05-26 19:00 | NUR ---
RN NOTE RECEIVED PATIENT IN BED RESTING ALERT ORIENTED X4 VERBALLY RESPONSIVE ON ROOM AIR O2:96% IV SITE IS ON LEFT AC INTACT PATENT AND IJ TUNNELED FOR HD INTACT,AMBULATORY WITH ASSIST,SAFETY MEASURE IMPLEMENT BED IN LOW POSITION AND LOCKED,CALL LIGHT WITHIN REACH,HEAD OF THE BED ELEVATED CONTINUE TO MONITOR.
[2021-05-26 20:00] VITALS: BP 104/70
[2021-05-26] MEDS: ATORVASTATIN 40 MG TABLET PO SCH (21:18)
[2021-05-27] VITALS: BP 105/70
--- NOTE | 2021-05-27 02:28 | NUR ---
RN OPENING NOTE PATIENT RECEIVED IN BED SITTING A/O X4. PATIENT ON ROOM AIR WITH NO SIGNS OF LABORED BREATHING. PATIENT SINUS RHYTHM AT THIS TIME, CLOSELY MONITOR WITH TELE MONITOR ON. LEFT AC 18G SL IN PLACE AND RIGHT IJ HD CATH IN PLACE. NO SIGNS OF ACUTE DISTRESS NOTED AT THIS TIME. BED LOCKED AND IN LOWEST POSITION, CALL LIGHT WITHIN REACH, 2 SIDE RAILS UP. WILL CONTINUE TO MONITOR.
[2021-05-27 04:00] VITALS: BP 102/71
[2021-05-27 06:26] LABS: EOSINOPHILS % (AUTO) 4.9 % (0.0-6.0); HEMATOCRIT 39 % (39-51); HEMOGLOBIN 12.8 g/dL (13.5-17.5); LYMPHOCYTES # (AUTO) 0.6 K/uL (0.8-4.8); LYMPHOCYTES % (AUTO) 13.6 % (20.0-44.0); MEAN CORPUSCULAR HGB CONC 33 g/dl (31.0-36.0); MEAN CORPUSCULAR VOLUME 91 fL (80-96); MONOCYTES # (AUTO) 0.7 K/uL (0.1-1.30); MONOCYTES % (AUTO) 15.4 % (2.0-12.0); NEUTROPHILS # (AUTO) 2.9 K/uL (1.8-8.9); NEUTROPHILS % (AUTO) 65.1 % (43.0-81.0); PLATELET COUNT (AUTO) 148 K/uL (150-450); WHITE BLOOD COUNT (AUTO) 4.4 K/uL (4.3-11.0)
--- NOTE | 2021-05-27 06:37 | NUR ---
RN NOTE PATIENT REMAINS ALERT ORIENTED X4 VERBALLY RESPONSIVE ON ROOM AIR O2:95% NO SOB NOT ACUTE DISTRESS NOTED ALL DUE MEDS GIVEN MD ORDERED KEPT CLEAN AND DRY ALL THE TIME,KEPT HEAD OF THE BED ELEVATED,ALL NEEDS MET ENDORSE NEXT COMING SHIFT FOR CONTINUATION OF CARE.
--- NOTE | 2021-05-27 07:22 | NUR ---
RN OPENING NOTE PATIENT RECEIVED IN BED, SLEEPING. PATIENT ON ROOM AIR WITH NO SIGNS OF LABORED BREATHING. PATIENT SINUS RHYTHM AT THIS TIME, CLOSELY MONITOR WITH TELE MONITOR ON. LEFT AC 18G SL IN PLACE AND RIGHT IJ HD CATH IN PLACE. NO SIGNS OF ACUTE DISTRESS NOTED AT THIS TIME. BED LOCKED AND IN LOWEST POSITION, CALL LIGHT WITHIN REACH, 2 SIDE RAILS UP. WILL CONTINUE TO MONITOR.
[2021-05-27] MEDS: BLOOD SUGAR DIAGNOSTIC 1 EACH STRIP IN SCH ×4 (07:35→21:36)
--- NOTE | 2021-05-27 07:43 | NUR ---
RN NOTE PATIENT SCHEDULED FOR DIALYSIS TODAY. ALL BP MEDS WILL BE HELD.
[2021-05-27 08:00] VITALS: BP 103/72
[2021-05-27] MEDS: ASPIRIN EC 81 MG TABLET.DR PO SCH (08:20)
[2021-05-27] MEDS: CHOLECALCIFEROL 1,000 UNIT TABLET (VIT D3) PO SCH (08:20)
[2021-05-27] MEDS: glipiZIDE 5 MG TABLET PO SCH ×2 (08:20→16:44)
[2021-05-27] MEDS: LEVOTHYROXINE SODIUM 25 MCG TABLET PO SCH (08:20)
[2021-05-27] MEDS: APIXABAN 5 MG TABLET PO SCH ×2 (08:21→16:44)
[2021-05-27] MEDS: FUROSEMIDE 40 MG TABLET PO SCH (08:22)
[2021-05-27] MEDS: METOPROLOL SUCCINATE 25 MG TAB.SR.24H PO SCH (08:22)
[2021-05-27] MEDS: ISOSORBIDE MONONITRATE (30MG) 30 MG TAB.SR.24H PO SCH (08:22)
[2021-05-27] MEDS: AMIODARONE HCL 200 MG TABLET PO SCH ×2 (08:22→16:49)
[2021-05-27] MEDS: INSULIN REGULAR, HUMAN 100 UNIT/ML 3 ML VIAL SQ PRN ×2 (08:25→16:52)
[2021-05-27 08:29] LABS: ALBUMIN 2.9 g/dL (3.4-5.0); BILIRUBIN,TOTAL 1.4 mg/dL (0.2-1.0); CALCIUM, SERUM 9.7 mg/dL (8.5-10.1); CREATININE 3.8 mg/dL (0.6-1.3); MAGNESIUM 2.2 mg/dL (1.8-2.4); PHOSPHORUS 3.5 mg/dL (2.5-4.9); POTASSIUM 4.3 mmol/L (3.5-5.1); TOTAL PROTEIN, SERUM 7.3 g/dL (6.4-8.2)
[2021-05-27] MEDS ORDERED: ALBUMIN 25% 25 GM in PREMIX 1 EA IV PRN (09:30)
--- NOTE | 2021-05-27 11:18 | NUR ---
RN NOTE PATIENT CURRENTLY RECEIVING DIALYSIS. VITAL SIGNS STABLE. ALBUMIN GIVEN PRIOR TO HD DUE TO A DECREASE IN BP AND TACHYCARDIA. SINUS RHYTHM AT THIS TIME, BLOOD PRESSURE STABLE. WILL CONTINUE TO MONITOR.
[2021-05-27 12:00] VITALS: BP 103/76
--- NOTE | 2021-05-27 14:00 | NUR ---
RN NOTE PATIENT TOLERATED DIALYSIS WELL. VITAL SIGNS STABLE. NO SIGNS OF ACUTE DISTRESS NOTED. WILL CONTINUE TO MONITOR.
[2021-05-27] MEDS ORDERED: METOPROLOL SUCCINATE 25 MG TAB.SR.24H PO SCH (14:30)
[2021-05-27 16:00] VITALS: BP 96/69
--- NOTE | 2021-05-27 17:00 | NUR ---
RN NOTE HEART RATE VARIATING BETWEEN 100-110, BP 96/69. PER MAX WILLAMS TO GIVE AMIODARONE. WILL CONTINUE TO MONITOR.
--- NOTE | 2021-05-27 18:30 | NUR ---
RN CLOSING NOTE PATIENT REMAINS IN BED, AWAKE, A&OX4. PATIENT ON ROOM AIR WITH NO SIGNS OF LABORED BREATHING. PATIENT CONTROLLED AFIB AT THIS TIME, CLOSELY MONITOR WITH TELE MONITOR ON. LEFT AC 18G SL IN PLACE AND RIGHT IJ HD CATH IN PLACE. NO SIGNS OF ACUTE DISTRESS NOTED AT THIS TIME. ALL NEEDS ATTENDED DURING SHIFT. 2,000CC REMOVED DURING AM DIALYSIS. BED LOCKED AND IN LOWEST POSITION, CALL LIGHT WITHIN REACH, 2 SIDE RAILS UP. WILL ENDORSE TO CLINICAL AUDIOLOGIST NURSE.
[2021-05-27 20:00] VITALS: BP 109/70
[2021-05-27] MEDS: ATORVASTATIN 40 MG TABLET PO SCH (21:29)
--- NOTE | 2021-05-27 21:36 | NUR ---
RN NOTES BS 127MG/DL NO INSULIN COVERAGE
[2021-05-28] VITALS: BP 108/69
[2021-05-28 04:00] VITALS: BP 108/68
--- NOTE | 2021-05-28 06:45 | NUR ---
RN NOTES PATIENT REMAINS IN BED, AWAKE, A&OX4. PATIENT ON ROOM AIR WITH NO SIGNS OF LABORED BREATHING. PATIENT CONTROLLED AFIB AT THIS TIME, CLOSELY MONITOR WITH TELE MONITOR ON. LEFT AC 18G SL IN PLACE AND RIGHT IJ HD CATH IN PLACE. NO SIGNS OF ACUTE DISTRESS NOTED AT THIS TIME. ALL NEEDS ATTENDED DURING SHIFT. 2,000CC REMOVED DURING AM DIALYSIS. BED LOCKED AND IN LOWEST POSITION, CALL LIGHT WITHIN REACH, 2 SIDE RAILS UP. 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
[2021-05-28] MEDS: LEVOTHYROXINE SODIUM 25 MCG TABLET PO SCH (07:27)
--- NOTE | 2021-05-28 07:30 | NUR ---
RN OPENING NOTE PATIENT IN BED, AWAKE, A&OX4. PATIENT ON ROOM AIR WITH NO SIGNS OF LABORED BREATHING. PATIENT CONTROLLED AFIB AT THIS TIME, CLOSELY MONITOR WITH TELE MONITOR ON. LEFT AC 18G SL IN PLACE AND RIGHT IJ HD CATH IN PLACE. NO SIGNS OF ACUTE DISTRESS NOTED AT THIS TIME. ALL SAFETY MEASURES NOTED AND ACCOUNTED FOR. BED LOCKED AND IN LOWEST POSITION, CALL LIGHT WITHIN REACH, 2 SIDE RAILS UP. WILL CONTINUE TO MONITOR.
[2021-05-28] MEDS: BLOOD SUGAR DIAGNOSTIC 1 EACH STRIP IN SCH ×2 (07:33→12:17)
[2021-05-28 08:00] VITALS: BP 119/69
[2021-05-28] MEDS: glipiZIDE 5 MG TABLET PO SCH (08:07)
[2021-05-28] MEDS: FUROSEMIDE 40 MG TABLET PO SCH (08:07)
[2021-05-28] MEDS: ISOSORBIDE MONONITRATE (30MG) 30 MG TAB.SR.24H PO SCH (08:08)
[2021-05-28] MEDS: AMIODARONE HCL 200 MG TABLET PO SCH (08:08)
[2021-05-28] MEDS: CHOLECALCIFEROL 1,000 UNIT TABLET (VIT D3) PO SCH (08:08)
[2021-05-28] MEDS: APIXABAN 5 MG TABLET PO SCH (08:12)
[2021-05-28] MEDS: ASPIRIN EC 81 MG TABLET.DR PO SCH (08:19)
[2021-05-28] MEDS: METOPROLOL SUCCINATE 25 MG TAB.SR.24H PO SCH (08:19)
[2021-05-28 12:00] VITALS: BP 127/70
[2021-05-28] MEDS: INSULIN REGULAR, HUMAN 100 UNIT/ML 3 ML VIAL SQ PRN (12:18)
[2021-05-28] MEDS ORDERED: LEVO25TA7 PO (13:27)
--- NOTE | 2021-05-28 14:00 | NUR ---
BEDSPREAD SEAMER NOTE PATIENT STABLE AT TIME OF DISCHARGE. PATIENT HAD RAC PIV REMOVED FULLY INTACT WITH NO SIGN OF HEAVY BLEEDING. PATIENT VERBALLY CONFIRMED UNDERSTANDING OF MD ORDERS POST DISCHARGE. PATIENT V/S STABLE AT TIME OF DISCHARGE. PATIENT STATED THAT WOULD BE PICKING HIM UP TO GO HOME. PATIENT DISCHARGED AND LEFT WITH . PATIENT REMAINED STABLE THROUGHOUT DISCHARGE.
== END 2021-05-28 14:41 | disposition home or self-care (01) | DRG 206 ==
LOC: ER 23:47 → TELE1 05-26 03:54 → MEDSG1 05-28 10:06
PROC: 5A1D70Z Performance of Urinary Filtration, Intermittent, Less than 6 Hours Per Day (ICD-10-PCS; principal; 2021-05-27)
DX: T82.897A Other specified complication of cardiac prosthetic devices, implants and grafts, initial encounter (principal); D68.4 Acquired coagulation factor deficiency; D69.6 Thrombocytopenia, unspecified; I13.2 Hypertensive heart and chronic kidney disease with heart failure and with stage 5 chronic kidney disease, or end stage renal disease; D63.8 Anemia in other chronic diseases classified elsewhere; E87.1 Hypo-osmolality and hyponatremia; N18.6 End stage renal disease; I42.9 Cardiomyopathy, unspecified; E88.09 Other disorders of plasma-protein metabolism, not elsewhere classified; E11.22 Type 2 diabetes mellitus with diabetic chronic kidney disease; E78.5 Hyperlipidemia, unspecified; I48.91 Unspecified atrial fibrillation; Z99.2 Dependence on renal dialysis; E03.9 Hypothyroidism, unspecified; Z20.822 Contact with and (suspected) exposure to COVID-19; Z79.01 Long term (current) use of anticoagulants; Z95.810 Presence of automatic (implantable) cardiac defibrillator; I25.10 Atherosclerotic heart disease of native coronary artery without angina pectoris; Z79.84 Long term (current) use of oral hypoglycemic drugs; Z86.73 Personal history of transient ischemic attack (TIA), and cerebral infarction without residual deficits; Z87.891 Personal history of nicotine dependence; I50.22 Chronic systolic (congestive) heart failure; Y84.8 Other medical procedures as the cause of abnormal reaction of the patient, or of later complication, without mention of misadventure at the time of the procedure; Y92.009 Unspecified place in unspecified non-institutional (private) residence as the place of occurrence of the external cause; K74.60 Unspecified cirrhosis of liver; R74.01 Elevation of levels of liver transaminase levels
CPT/HCPCS: 36415; 71045-TC; 80048-TC; 80053-TC; 80076-TC; 82962-TC; 83735-TC; 83880; 84100-TC; 84443-TC; 84484-TC; 85025-TC; 85730-TC; 87081-TC; 90935-TC; A4216; C9803; G0378; J1815; J7030; P9047